=== PATIENT | male | born 1955 | race Two or more races ===

== ENCOUNTER 2018-04-15 13:17 | Inpatient (IN) | payer OTHER ==
[2018-04-15] MEDS ORDERED: LORazepam 2 MG/ML SDV VIAL IVPUSH ONE (14:39)
--- NOTE | 2018-04-15 14:44 | PDOC ---
History of Present Illness <Shazia Christianson - Last Filed: 04/15/18 18:27> - General History Source: Patient Exam Limitations: No Limitations - History of Present Illness Initial Comments: 04/15/18 14:40 62-year-old male history of heart disease hypertension alcohol abuse here today from [facility] for concerns of shortness of breath. Patient does have a history of COPD is on home oxygen was at [place] this morning and suddenly felt like he was shaky and feeling very short of breath therefore sent here for medical clearance prior to admission to [facility]. Patient states last includes this morning does drink daily. No history of DTs or previous withdrawal seizures no history of withdrawal hallucinations denies other drug use denies any chest pain patient is unsure of the names of his medications <Suzie Scanlon - Last Filed: 04/15/18 18:29> - General Chief Complaint: Alcohol intoxication Stated Complaint: ANXIETY Time Seen by Provider: 04/15/18 14:05 Past History <Shazia Christianson - Last Filed: 04/15/18 18:27> - Past Medical History Cardiac Disorders: Yes COPD: Yes HTN: Yes Hypercholesterolemia: Yes - Suicide/Smoking/Psychosocial Hx Smoking History: Former smoker Have you smoked in the past 12 months: No Information on smoking cessation initiated: No Hx Alcohol Use: Yes Drug/Substance Use Hx: No (past) Substance Use Type: Alcohol, Heroin <Suzie Scanlon - Last Filed: 04/15/18 18:29> - Past Medical History Allergies/Adverse Reactions: Allergies Allergy/AdvReac Type Severity Reaction Status Date / Time No Known Allergies Allergy Verified 04/15/18 14:49 Review of Systems - Review of Systems Constitutional: No: See HPI, Chills, Diaphoresis HEENTM: No: Cataracts Respiratory: Yes: Cough, Shortness of Breath Cardiac (ROS): No: Chest Pain, Edema ABD/GI: No: Abdominal Distended Musculoskeletal: No: Back Pain, Gout Integumentary: No: Bruising, Change in Color Hematologic/Lymphatic: No: Anemia All Other Systems: Reviewed and Negative <Suzie Scanlon - Last Filed: 04/15/18 18:29> *Physical Exam - Vital Signs Last Vital Signs Temp Pulse Resp BP Pulse Ox 98.6 F 101 H 22 166/84 100 04/15/18 13:44 04/15/18 13:44 04/15/18 13:44 04/15/18 13:44 04/15/18 13:44 <Shazia Christianson - Last Filed: 04/15/18 18:27> - Vital Signs Last Vital Signs Temp Pulse Resp BP Pulse Ox 98.6 F 101 H 22 166/84 100 04/15/18 13:44 04/15/18 13:44 04/15/18 13:44 04/15/18 13:44 04/15/18 13:44 - Physical Exam General Appearance: Yes: Appropriately Dressed HEENT: positive: Normal ENT Inspection Neck: positive: Trachea midline Respiratory/Chest: positive: Lungs Clear, Normal Breath Sounds Cardiovascular: positive: Regular Rhythm, S1, S2, Tachycardia Gastrointestinal/Abdominal: positive: Normal Bowel Sounds Musculoskeletal: positive: Normal Inspection Extremity: positive: Normal Capillary Refill Integumentary: positive: Normal Color, Warm, Clammy Neurologic: positive: Fully Oriented, Alert, Normal Mood/Affect, Other ( baseline tremulous) <Suzie Scanlon - Last Filed: 04/15/18 18:29> Heart Score/ECG Review #1 General ECG Interpretation: Sinus Rhythm, Normal Intervals, No acute ischemic changes (TwI V1 - V3) Compared to previous ECG there are: Previous ECG unavail - ECG Intrepretation Comment:: 04/15/18 15:04 sinus tachycardia. <Suzie Scanlon - Last Filed: 04/15/18 18:29> ED Treatment Course - LABORATORY CBC & Chemistry Diagram: 04/15/18 16:40 04/15/18 15:19 - ADDITIONAL ORDERS Additional order review: Laboratory Results 04/15/18 15:19 Sodium Cancelled Potassium Cancelled Chloride Cancelled Carbon Dioxide Cancelled Anion Gap Cancelled BUN Cancelled Creatinine Cancelled Creat Clearance w eGFR Cancelled Random Glucose Cancelled Calcium Cancelled Total Bilirubin Cancelled AST Cancelled ALT Cancelled Alkaline Phosphatase Cancelled Total Protein Cancelled Albumin Cancelled Acetaminophen Cancelled Alcohol, Quantitative Cancelled 04/15/18 04/15/18 16:40 15:19 RBC 3.71 L Cancelled MCV 96.8 H Cancelled MCHC 33.6 Cancelled RDW 15.7 Cancelled MPV 9.6 Cancelled Neutrophils % 87.8 H Cancelled Lymphocytes % 5.3 L Cancelled Monocytes % 6.5 Cancelled Eosinophils % 0.0 Cancelled Basophils % 0.4 Cancelled - RADIOLOGY Radiograph Interpretation: 04/15/18 17:46 EXAM: CXR INTERPRETED BY: Dr. Jennings REVIEWED BY: Dr. Scanlon IMPRESSION: Imaging reveals a weak inspiration with large heart, elevated right hemidiaphragm, sclerotic knob and congestive changes with questionable infiltrate or atelectasis with pleural reaction. There are no prior studies for comparison at this time. Correlation recommended. - Medications Given in the ED: ED Medications Discontinued Medications Generic Name Dose Route Start Last Admin Trade Name Freq PRN Reason Stop Dose Admin Lorazepam 2 mg 04/15/18 14:39 04/15/18 14:40 Ativan Injection - IVPUSH 04/15/18 14:40 2 mg ONCE ONE Administration <Shazia Christianson - Last Filed: 04/15/18 18:27> - LABORATORY CBC & Chemistry Diagram: 04/15/18 16:40 04/15/18 15:19 - RADIOLOGY Radiology Studies Ordered: Category Date Time Status CXRPORT [CHEST X-RAY PORTABLE*] [RAD] Stat Radiology 04/15/18 14:39 Ordered <Suzie Scanlon - Last Filed: 04/15/18 18:29> Medical Decision Making - Medical Decision Making 04/15/18 18:27 First call placed to Dr. Villar at 18:27. Case discussed at this time. <Shazia Christianson - Last Filed: 04/15/18 18:27> - Medical Decision Making 04/15/18 14:42 62 yo M h/o etoh abuse, copd, htn, here with c/o sob, and tremulousness from [facility]. pt was trying to quit drinking, but at [facility] felt sob so sent to ed for med eval. differential pneumonia, dehydration etoh withdrawal, acs, copd, plan labs cxr oxygen, aspirin, iv hydration kelly nye, 04/15/18 18:28 pt with pna on cxr, will admit for etoh withdrawal and pna. d/w dr. villar, will see in hospital. <Suzie Scanlon - Last Filed: 04/15/18 18:29> *DC/Admit/Observation/Transfer - Attestations Scribe Attestion: 04/15/18 17:46 Documentation prepared by Shazia Christianson, acting as medical office administrator for Suzie Scanlon MD. <Shazia Christianson - Last Filed: 04/15/18 18:27> - Discharge Dispostion Decision to Admit order: Yes <Suzie Scanlon - Last Filed: 04/15/18 18:29> Diagnosis at time of Disposition: Pneumonia, Alcohol withdrawal
[2018-04-15] MEDS ORDERED: LORazepam 2 MG/ML SDV VIAL ONE (14:53)
--- NOTE | 2018-04-15 16:03 | EKG ---
Test Reason : Blood Pressure : / mmHG Vent. Rate : 096 BPM Atrial Rate : 096 BPM P-R Int : 136 ms QRS Dur : 100 ms QT Int : 380 ms P-R-T Axes : 056 047 050 degrees QTc Int : 480 ms NORMAL SINUS RHYTHM T WAVE ABNORMALITY, CONSIDER ANTERIOR ISCHEMIA PROLONGED QT ABNORMAL ECG NO PREVIOUS ECGS AVAILABLE Confirmed by JOLENE TYLER MD ([id number]) on 04/15/2018 4:02:31 PM Referred By: Confirmed By:JOLENE TYLER MD
[2018-04-15 16:53] LABS: BASO % 0.4 % (0-2.0); HEMATOCRIT 35.9 % (35.4-49); LYMPH % 5.3 % (8-40); MCH 32.5 pg (25.7-33.7); MCHC 33.6 g/dl (32.0-35.9); MEAN CELL VOLUME 96.8 fl (80-96); MEAN PLT VOLUME 9.6 fl (7.5-11.1); MONO % 6.5 % (3.8-10.2); NEUT % 87.8 % (42.8-82.8); PLATELET COUNT 72 K/MM3 (134-434); RBC 3.71 M/mm3 (4.00-5.60); RDW 15.7 % (11.9-15.9)
[2018-04-15 17:47] LABS: PLATELET ESTIMATE DECREASED
[2018-04-15 19:04] LABS: ALBUMIN 3.4 g/dl (3.4-5.0); ALK PHOS 149 U/L (45-117); ANION GAP 15 (8-16); BILIRUBIN,TOTAL 1.1 mg/dL (0.2-1.0); BLOOD UREA NITROGEN 11 mg/dL (7-18); CALCIUM 8.1 mg/dL (8.5-10.1); CHLORIDE 95 mmol/L (98-107); CO2 28 mmol/L (21-32); CREATININE 0.8 mg/dL (0.7-1.3); GLUCOSE,RANDOM 65 mg/dL (74-106); POTASSIUM 3.7 mmol/L (3.5-5.1); SGOT/AST 113 U/L (15-37); SGPT/ALT 51 U/L (12-78); SODIUM 138 mmol/L (136-145); TOT PROT 6.3 g/dl (6.4-8.2)
[2018-04-15] MEDS ORDERED: ONDANSETRON 4 MG/2 ML VIAL IVPUSH ONE (19:58)
[2018-04-15] MEDS ORDERED: ONDANSETRON 4 MG/2 ML VIAL ONE (20:00)
[2018-04-15 20:11] LABS: URINE AMPHETAMINES NEGATIVE ng/ml (CUTOFF=500); URINE BARBITURATES NEGATIVE ng/ml (CUTOFF=200); URINE BENZODIAZEPINES NEGATIVE ng/ml (CUTOFF=200)
[2018-04-15 20:12] LABS: COCAINE, UR NEGATIVE ng/ml (CUTOFF=300); METHADONE, UR POSITIVE ng/ml (CUTOFF=300); OPIATES, URI NEGATIVE ng/ml (CUTOFF=300); PHENCYCLIDINE,URINE NEGATIVE ng/ml (CUTOFF=25)
[2018-04-15] MEDS ORDERED: ACETAMINOPHEN 325 MG TABLET (FP) PO PRN (21:27)
[2018-04-15] MEDS ORDERED: ALBUTEROL SO4 2.5/IPRATROPIUM 0.5 INH SOL 3 ML VIAL.NEB. NEB PRN (21:28)
--- NOTE | 2018-04-15 21:30 | HP ---
Admitting History and Physical - Primary Care Physician PCP: Maggie To - Admission Chief Complaint: sob History of Present Illness: 62-year-old male history of heart disease hypertension alcohol abuse here today from [facility] for concerns of shortness of breath. Patient does have a history of COPD is on home oxygen was at [facility] this morning and suddenly felt like he was shaky and feeling very short of breath therefore sent here for medical clearance prior to admission to [facility]. Patient states last includes this morning does drink daily. No history of DTs or previous withdrawal seizures no history of withdrawal hallucinations denies other drug use denies any chest pain patient is unsure of the names of his medications - Past Medical History Pulmonary: Yes: COPD - Smoking History Smoking history: Former smoker Have you smoked in the past 12 months: No - Alcohol/Substance Use Hx Alcohol Use: Yes Home Medications - Allergies Allergies/Adverse Reactions: Allergies Allergy/AdvReac Type Severity Reaction Status Date / Time No Known Allergies Allergy Verified 04/15/18 14:49 - Home Medications Home Medications: Ambulatory Orders Albuterol 0.083% Nebulizer Elizabeth [Ventolin 0.083% Nebulizer Soln -] 1 neb NEB Q6H PRN 04/16/18 Amlodipine Besylate 10 mg PO DAILY 04/16/18 Apixaban [Eliquis] 5 mg PO BID 04/16/18 Atorvastatin Ca [Lipitor] 20 mg PO HS 04/16/18 Cyanocobalamin [Vitamin B12 -] 1,000 mg PO DAILY 04/16/18 Folic Acid 1 mg PO DAILY 04/16/18 Ipratropium 0.02% Nebulizer [Atrovent] 1 neb NEB Q6H 04/16/18 Isosorbide Mononitrate 30 mg PO DAILY 04/16/18 Metoprolol Succinate [Toprol Xl] 50 mg PO DAILY 04/16/18 Tamsulosin HCl [Flomax] 0.4 mg PO DAILY@1000 04/16/18 Thiamine HCl [Vitamin B-1] 100 mg PO DAILY 04/16/18 Trazodone HCl 50 mg PO HS 04/16/18 Physical Examination Vital Signs: Vital Signs Temperature 98.6 F 04/15/18 13:44 Pulse Rate 114 H 04/15/18 19:52 Respiratory Rate 18 04/15/18 19:52 Blood Pressure 102/72 04/15/18 19:52 O2 Sat by Pulse Oximetry (%) 96 04/15/18 19:52 Constitutional: Yes: No Distress HENT: Yes: Atraumatic Neck: Yes: Supple Cardiovascular: Yes: Regular Rate and Rhythm Respiratory: Yes: Rhonchi, Wheezes Gastrointestinal: Yes: Normal Bowel Sounds Extremities: Yes: WNL Neurological: Yes: Alert, Oriented Labs: CBC, BMP 04/15/18 16:40 04/15/18 18:15 Imaging - Results Chest X-ray: Report Reviewed Problem List - Problems (1) COPD (chronic obstructive pulmonary disease) Assessment/Plan: duo nebs prn iv steroids Code(s): J44.9 - CHRONIC OBSTRUCTIVE PULMONARY DISEASE, UNSPECIFIED (2) Alcohol withdrawal Assessment/Plan: start librium detox consult Code(s): F10.239 - ALCOHOL DEPENDENCE WITH WITHDRAWAL, UNSPECIFIED Qualifiers: Complication of substance-induced condition: with unspecified complication Qualified Code(s): F10.239 - Alcohol dependence with withdrawal, unspecified (3) Pneumonia Assessment/Plan: iv abx id consult Code(s): J18.9 - PNEUMONIA, UNSPECIFIED ORGANISM Assessment/Plan Laboratory Tests 04/15/18 04/15/18 04/15/18 15:19 15:19 16:40 WBC Cancelled 7.0 Corrected WBC (auto) Cancelled RBC Cancelled 3.71 L Hgb Cancelled 12.0 Hct Cancelled 35.9 MCV Cancelled 96.8 H MCH Cancelled 32.5 MCHC Cancelled 33.6 RDW Cancelled 15.7 Plt Count Cancelled 72 L MPV Cancelled 9.6 Absolute Neuts (auto) Cancelled 6.1 Neutrophils % Cancelled 87.8 H Lymphocytes % Cancelled 5.3 L Monocytes % Cancelled 6.5 Eosinophils % Cancelled 0.0 Basophils % Cancelled 0.4 Nucleated RBC % Cancelled 0 Platelet Estimate Cancelled Decreased Platelet Comment Cancelled Slide scanned Sodium Cancelled Potassium Cancelled Chloride Cancelled Carbon Dioxide Cancelled Anion Gap Cancelled BUN Cancelled Creatinine Cancelled Creat Clearance w eGFR Cancelled Random Glucose Cancelled Calcium Cancelled Total Bilirubin Cancelled AST Cancelled ALT Cancelled Alkaline Phosphatase Cancelled Total Protein Cancelled Albumin Cancelled Opiates Screen Methadone Screen Acetaminophen Cancelled Barbiturate Screen Phencyclidine Screen Ur Amphetamines Screen MDMA (Ecstasy) Screen Benzodiazepines Screen Cocaine Screen U Marijuana (THC) Screen Alcohol, Quantitative Cancelled 04/15/18 04/15/18 18:15 19:40 WBC Corrected WBC (auto) RBC Hgb Hct MCV MCH MCHC RDW Plt Count MPV Absolute Neuts (auto) Neutrophils % Lymphocytes % Monocytes % Eosinophils % Basophils % Nucleated RBC % Platelet Estimate Platelet Comment Sodium 138 Potassium 3.7 Chloride 95 L Carbon Dioxide 28 Anion Gap 15 BUN 11 Creatinine 0.8 Creat Clearance w eGFR > 60 Random Glucose 65 L Calcium 8.1 L Total Bilirubin 1.1 H AST 113 H ALT 51 Alkaline Phosphatase 149 H Total Protein 6.3 L Albumin 3.4 Opiates Screen Negative Methadone Screen Positive Acetaminophen Barbiturate Screen Negative Phencyclidine Screen Negative Ur Amphetamines Screen Negative MDMA (Ecstasy) Screen Negative Benzodiazepines Screen Negative Cocaine Screen Negative U Marijuana (THC) Screen Negative Alcohol, Quantitative < 5.0 Active Medications Generic Name Dose Route Start Last Admin Trade Name Freq PRN Reason Stop Dose Admin Acetaminophen 650 mg 04/15/18 21:27 Tylenol - PO Q6H PRN FEVER Albuterol/Ipratropium 1 amp 04/15/18 21:28 Duoneb - NEB Q4H PRN SHORTNESS OF BREATH Methylprednisolone Sodium Succinate 60 mg 04/15/18 21:30 Solu-Medrol - IVPUSH Q8H-IV JENNIFER
[2018-04-15] MEDS ORDERED: LORazepam 2 MG/ML SDV VIAL IM PRN (21:31)
[2018-04-15] MEDS: methylPREDNISolone NA SUCC 125 MG/2 ML VIAL IVPUSH SCH (21:41)
[2018-04-15] MEDS ORDERED: methylPREDNISolone NA SUCC 1000 MG/8 ML VIAL ONE (21:46)
[2018-04-16] MEDS ORDERED: LORazepam 2 MG/ML SDV VIAL ONE (01:41)
[2018-04-16] MEDS: methylPREDNISolone NA SUCC 125 MG/2 ML VIAL IVPUSH SCH ×2 (01:45→09:28)
[2018-04-16] MEDS ORDERED: methylPREDNISolone NA SUCC 40 MG/1 ML VIAL ONE (02:07)
[2018-04-16 03:43] VITALS: BMI 26.1
[2018-04-16] MEDS ORDERED: chlordiazePOXIDE HCL 25 MG CAPSULE PO ONE (09:00)
--- NOTE | 2018-04-16 10:02 | CON.PULM ---
Consult Consult Specialty:: PULMONARY Referred by:: Dr. To Reason for Consultation:: shortness of breath - History of Present Illness Chief Complaint: shortness of breath History of Present Illness: 62yo male with h/o HTN, COPD, chronic hypoxic respiratory failure on home O2, alcohol abuse who was transferred from [facility] for shortness of breath. States he feels very anxious and shaky. No chest pain or palpitations. No fevers but with subjective chills. Occasional cough with clear sputum without wheezing. He is a former long time smoker, started at age 13, smoked on average 1 PPD until he quit last year. He is maintained on albuterol nebulizer treatments at home. - History Source History Provided By: Patient, Medical Record Limitations to Obtaining History: Clinical Condition - Past Medical History Pulmonary: Yes: COPD - Alcohol/Substance Use Hx Alcohol Use: Yes - Smoking History Smoking history: Former smoker Have you smoked in the past 12 months: No Home Medications - Allergies Allergies/Adverse Reactions: Allergies Allergy/AdvReac Type Severity Reaction Status Date / Time No Known Allergies Allergy Verified 04/15/18 14:49 - Home Medications Home Medications: Ambulatory Orders NK [No Known Home Medication] 04/15/18 Review of Systems - Review of Systems Constitutional: reports: Weakness. denies: Chills, Fever Eyes: denies: Recent Change in Vision HENT: denies: Nasal Congestion, Throat Pain Neck: denies: Stiffness, Tenderness Cardiovascular: reports: Shortness of Breath. denies: Chest Pain, Edema, Palpitations Respiratory: reports: Cough. denies: Hemoptysis, Wheezing Gastrointestinal: denies: Abdominal Pain, Nausea, Vomiting Genitourinary: denies: Dysuria Neurological: denies: Dizziness, Headache Physical Exam Vital Sings: Vital Signs Temperature 97.6 F 04/16/18 02:56 Pulse Rate 92 H 04/16/18 02:56 Respiratory Rate 20 04/16/18 02:56 Blood Pressure 151/86 04/16/18 02:56 O2 Sat by Pulse Oximetry (%) 96 04/16/18 02:56 Constitutional: Yes: Anxious Eyes: Yes: Conjunctiva Clear, EOM Intact HENT: Yes: Atraumatic, Normocephalic Neck: Yes: Supple, Trachea Midline Cardiovascular: Yes: Regular Rate and Rhythm Respiratory: Yes: Regular, Diminished (decreased breath sounds at the bases) ...Clubbing: No Gastrointestinal: Yes: Normal Bowel Sounds, Soft. No: Tenderness Edema: No Neurological: Yes: Alert, Oriented Labs: CBC, BMP 04/15/18 16:40 04/15/18 18:15 Imaging - Results Chest X-ray: Report Reviewed, Image Reviewed (poor inspiratory effor, pulmonary vascular congestion, cardiomegaly) Problem List - Problems (1) Alcohol withdrawal Code(s): F10.239 - ALCOHOL DEPENDENCE WITH WITHDRAWAL, UNSPECIFIED (2) COPD (chronic obstructive pulmonary disease) Code(s): J44.9 - CHRONIC OBSTRUCTIVE PULMONARY DISEASE, UNSPECIFIED Assessment/Plan Shortness of Breath Chronic Hypoxic Respiratory Failure r/o CHF COPD - less likely acute exacerbation Alcohol Abuse HTN Former Long time Smoker - will give dose of lasix - echocardiogram - rapid taper off steroids - inhaled bronchodilators standing and PRN - O2 to keep SpO2 >90% - CT chest noncontrast given his smoking history and abnormal CXR - monitor for withdrawal, would give dose of librium as he appears tremulous - addiction medicine eval - DVT prophylaxis Thank you for this consult Guanako Dale MD
[2018-04-16] MEDS ORDERED: ALBUTEROL SO4 0.083% IH SOL 2.5 MG/3 ML VIAL.NEB. NEB PRN ×2 (10:12→18:39)
[2018-04-16] MEDS ORDERED: FUROSEMIDE 40 MG/4 ML INJECTABLE VIAL IVPUSH ONE (10:45)
[2018-04-16] MEDS ORDERED: chlordiazePOXIDE HCL 25 MG CAPSULE PO PRN (10:54)
[2018-04-16] MEDS: ALBUTEROL SO4 2.5/IPRATROPIUM 0.5 INH SOL 3 ML VIAL.NEB. NEB SCH ×3 (11:08→20:50)
--- NOTE | 2018-04-16 11:08 | PN ---
[facility] CIWA - CIWA Score Muscle Tremors: 4-Moderate,w/Arms Extend Anxiety: 1-Mildly Anxious Agitation: 0-Normal Activity Paroxysmal Sweats: No Perspiration Orientation: 0-Oriented Tacttile Disturbances: 0-None Auditory Disturbances: 0-None Visual Disturbances: 0-None Headache: 0-None Present (pt is in mild alcohol withdrawal)
--- NOTE | 2018-04-16 11:09 | PN ---
S Progress Note (SOAP) Subjective: Asked to see pt who was transferred here from [facility] for alcohol withdrawal f /u. Pt states started drinking after 9-11 incident at [employer] when many of his coworkers . Pt states he has been drinking to forget the pain. Has been driking heavily recently. Wanted to go into detox.at [facility]. PT states they did not have any beds and so brought to [facility] for dttox. On evaluation it was felt that the pt was having shortness of breath and so transferred to [facility] for further evaluaton. Pt is being treated here for pulmonary process. Pt states that he feels like he is in withdrawal. Denies h/o seizures or DT's. Objective: 04/16/18 18:14 04/15/18 16:40 04/15/18 18:15 Vital Signs - 24 hr 04/15/18 04/15/18 04/16/18 19:52 21:00 01:33 Temperature Pulse Rate Pulse Rate [ 114 H 80 Apical] Respiratory 18 20 Rate Blood Pressure Blood Pressure 102/72 159/116 [Right Arm] O2 Sat by Pulse 96 96 100 Oximetry (%) 04/16/18 04/16/18 04/16/18 02:56 09:00 17:04 Temperature 97.6 F 97.5 F L Pulse Rate 92 H 106 H Pulse Rate [ Apical] Respiratory 20 20 20 Rate Blood Pressure 151/86 158/91 Blood Pressure [Right Arm] O2 Sat by Pulse 96 97 Oximetry (%) pt was tremulous and states feeling anxious. alert and oriented and without hallucinations Assessment: 04/16/18 18:15 62 yo old with a long h/o alcohol use, requesting detox and rehab admission Plan: 1. Alcohol librium- withdrawal protocol placed. When pt is ready and if willing he can be transferred to [facility] for detox and rehab. please call me if with questions of if I can be of further assistance: .
[2018-04-16] MEDS: chlordiazePOXIDE HCL 25 MG CAPSULE PO SCH ×2 (12:11→18:00)
--- NOTE | 2018-04-16 12:42 | CON.ID ---
Consult Consult Specialty:: infectious diseases Reason for Consultation:: pneumonia/infiltrate in the lung - History of Present Illness Chief Complaint: weakness,shortness of breath History of Present Illness: 62-year-old male history of heart disease hypertension alcohol abuse was send from the [facility] detox center because patient was c/o of sob patient has a history of copd and is on home oxygen According to the patient he at least drinks 2 points of etoh daily and gets anxiousness attacks and currently he is feeling anxious and says he does not feel too well . No history of DTs or previous withdrawal seizures no history of withdrawal hallucinations denies other drug use denies any chest pain patient admitted and seen by [facility] attending - History Source History Provided By: Patient, Medical Record Limitations to Obtaining History: Poor Historian - Past Medical History Pulmonary: Yes: COPD - Alcohol/Substance Use Hx Alcohol Use: Yes - Smoking History Smoking history: Former smoker Have you smoked in the past 12 months: No Home Medications - Allergies Allergies/Adverse Reactions: Allergies Allergy/AdvReac Type Severity Reaction Status Date / Time No Known Allergies Allergy Verified 04/15/18 14:49 - Home Medications Home Medications: Ambulatory Orders NK [No Known Home Medication] 04/15/18 Review of Systems - Review of Systems Constitutional: reports: No Symptoms Eyes: reports: No Symptoms HENT: reports: No Symptoms Neck: reports: No Symptoms Cardiovascular: reports: No Symptoms Respiratory: reports: SOB Gastrointestinal: reports: No Symptoms Genitourinary: reports: No Symptoms Musculoskeletal: reports: No Symptoms Integumentary: reports: No Symptoms Neurological: reports: No Symptoms Endocrine: reports: No Symptoms Hematology/Lymphatic: reports: No Symptoms Psychiatric: reports: No Symptoms Physical Exam Vital Signs: Vital Signs Temperature 97.6 F 04/16/18 02:56 Pulse Rate 92 H 04/16/18 02:56 Respiratory Rate 20 04/16/18 02:56 Blood Pressure 151/86 04/16/18 02:56 O2 Sat by Pulse Oximetry (%) 96 04/16/18 02:56 Constitutional: Yes: Anxious, Mild Distress Eyes: Yes: Conjunctiva Clear HENT: Yes: Atraumatic, Normocephalic Cardiovascular: Yes: Regular Rate and Rhythm Respiratory: Yes: Regular, Poor Air Entry Gastrointestinal: Yes: Normal Bowel Sounds, Soft Musculoskeletal: Yes: WNL Extremities: Yes: WNL Neurological: Yes: Alert, Oriented Psychiatric: Yes: Alert, Oriented Labs: CBC, BMP 04/15/18 16:40 04/15/18 18:15 Imaging - Results Chest X-ray: Report Reviewed, Image Reviewed Assessment/Plan patient who is coming with sob and who is etoh abuser and with copd and anxiousness showing a possible infiltrate on chest xray and on nasal canula the chances are with his history he might have aspirated but currently the patient is clinically stable infiltrate in the lung sob etoh abuse anxiousness plan await for cx report will start patient on oral abx monitor for breathing if things change will switch to iv if patient improves then will deescalate the abx
[2018-04-16] MEDS: METHADONE HCL 10 MG TABLET PO SCH (13:30)
[2018-04-16] MEDS ORDERED: AMOX TR/POT CLAV 875MG/125MG TABLETS (FP) PO ONE (13:30)
--- NOTE | 2018-04-16 18:44 | PN ---
Progress Note, Physician - Current Medication List Current Medications: Active Medications Acetaminophen (Tylenol -) 650 mg PO Q6H PRN PRN Reason: FEVER Albuterol Sulfate (Ventolin 0.083% Nebulizer Soln -) 1 amp NEB Q6H PRN PRN Reason: WHEEZING Albuterol/Ipratropium (Duoneb -) 1 amp NEB RQID [facility] Last Admin: 04/16/18 15:34 Dose: 1 amp Amlodipine Besylate (Norvasc -) 10 mg PO DAILY [facility] Amoxicillin/Clavulanate Potassium (Augmentin - 875mg Tablet) 1 tab PO BID@0800, 1730 [facility] Apixaban (Eliquis -) 5 mg PO BID [facility] Atorvastatin Calcium (Lipitor -) 20 mg PO HS [facility] Chlordiazepoxide HCl (Librium -) 25 mg PO Q4H PRN PRN Reason: WITHDRAWAL(CONT SUBST) Stop: 04/20/18 23:59 Chlordiazepoxide HCl (Librium -) 50 mg PO Q6HPO [facility] Stop: 04/17/18 06:01 Last Admin: 04/16/18 18:00 Dose: 50 mg Chlordiazepoxide HCl (Librium -) 25 mg PO Q6HPO [facility] Stop: 04/18/18 06:01 Chlordiazepoxide HCl (Librium -) 15 mg PO Q6HPO [facility] Stop: 04/19/18 06:01 Folic Acid (Folic Acid -) 1 mg PO DAILY [facility] Isosorbide Mononitrate (Ismo -) 30 mg PO DAILY [facility] Lorazepam (Ativan Injection -) 1 mg IM Q6H PRN PRN Reason: AGITATION Last Admin: 04/16/18 01:44 Dose: 1 mg Methadone HCl (Dolophine -) 30 mg PO DAILY@0600 [facility] Last Admin: 04/16/18 13:30 Dose: 30 mg Methylprednisolone Sodium Succinate (Solu-Medrol -) 40 mg IVPUSH Q12H [facility] Metoprolol Succinate (Toprol Xl -) 50 mg PO DAILY [facility] Tamsulosin HCl (Flomax -) 0.4 mg PO DAILY@1000 [facility] Thiamine HCl (Vitamin B1 -) 100 mg PO DAILY [facility] Trazodone HCl (Desyrel -) 50 mg PO HS [facility] - Objective Vital Signs: Vital Signs Temperature 97.5 F L 04/16/18 17:04 Pulse Rate 106 H 04/16/18 17:04 Respiratory Rate 20 04/16/18 17:04 Blood Pressure 158/91 04/16/18 17:04 O2 Sat by Pulse Oximetry (%) 97 04/16/18 09:00 Constitutional: Yes: Calm HENT: Yes: Atraumatic Neck: Yes: Supple Cardiovascular: Yes: Regular Rate and Rhythm Respiratory: Yes: CTA Bilaterally Extremities: Yes: WNL Neurological: Yes: Alert, Oriented Labs: CBC, BMP 04/15/18 16:40 04/15/18 18:15 Problem List - Problems (1) COPD (chronic obstructive pulmonary disease) Assessment/Plan: duo nebs prn iv steroids Code(s): J44.9 - CHRONIC OBSTRUCTIVE PULMONARY DISEASE, UNSPECIFIED (2) Alcohol withdrawal Assessment/Plan: on librium protocol detox consult Code(s): F10.239 - ALCOHOL DEPENDENCE WITH WITHDRAWAL, UNSPECIFIED Qualifiers: Complication of substance-induced condition: with unspecified complication Qualified Code(s): F10.239 - Alcohol dependence with withdrawal, unspecified (3) Pneumonia Assessment/Plan: po abx id consult Code(s): J18.9 - PNEUMONIA, UNSPECIFIED ORGANISM
[2018-04-16] MEDS ORDERED: ISOSORBIDE MONONITRATE 20 MG TABLET PO SCH (18:45)
[2018-04-16] MEDS ORDERED: AMOX TR/POT CLAV 875MG/125MG TABLETS (FP) PO SCH (20:00)
[2018-04-16] MEDS: FOLIC ACID 1 MG TABLET (FP) PO SCH (20:04)
[2018-04-16] MEDS: amLODIPine BESYLATE 10 MG TABLET (FP) PO SCH (20:04)
[2018-04-16] MEDS: THIAMINE HCL 100 MG TABLET (FP) PO SCH (20:04)
[2018-04-16] MEDS: AMOX TR/POT CLAV 875MG/125MG TABLETS (FP) PO SCH (22:16)
[2018-04-16] MEDS: ATORVASTATIN CA 20 MG TABLET (FP) PO SCH (22:16)
[2018-04-16] MEDS: methylPREDNISolone NA SUCC 40 MG/1 ML VIAL IVPUSH SCH (22:17)
[2018-04-16] MEDS: traZODone HCL 50 MG TABLET (FP) PO SCH (22:17)
[2018-04-16] MEDS: APIXABAN 5 MG TABLET PO SCH (22:17)
[2018-04-17] MEDS: chlordiazePOXIDE HCL 25 MG CAPSULE PO SCH ×4 (00:24→17:58)
[2018-04-17] MEDS: METHADONE HCL 10 MG TABLET PO SCH (05:30)
[2018-04-17] MEDS ORDERED: PT OWN MED DRAWER 7, Y5N ONE ×2 (06:31→19:36)
[2018-04-17] MEDS: ALBUTEROL SO4 2.5/IPRATROPIUM 0.5 INH SOL 3 ML VIAL.NEB. NEB SCH ×4 (07:33→20:36)
[2018-04-17] MEDS: AMOX TR/POT CLAV 875MG/125MG TABLETS (FP) PO SCH ×2 (08:30→17:58)
[2018-04-17] MEDS: TAMSULOSIN HCL 0.4 MG CAP.ER.24H (FP) PO SCH (08:30)
[2018-04-17] MEDS: THIAMINE HCL 100 MG TABLET (FP) PO SCH (09:34)
[2018-04-17] MEDS: APIXABAN 5 MG TABLET PO SCH ×2 (09:34→21:16)
[2018-04-17] MEDS: amLODIPine BESYLATE 10 MG TABLET (FP) PO SCH (09:34)
[2018-04-17] MEDS: methylPREDNISolone NA SUCC 40 MG/1 ML VIAL IVPUSH SCH (09:35)
[2018-04-17] MEDS: FOLIC ACID 1 MG TABLET (FP) PO SCH (09:35)
[2018-04-17] MEDS: ISOSORBIDE MONONITRATE 30 MG TAB.SR.24H (FP) PO SCH (09:35)
--- NOTE | 2018-04-17 12:55 | PN ---
Progress Note, Physician History of Present Illness: feeling much better no complaints sill feeling anxious - Current Medication List Current Medications: Active Medications Acetaminophen (Tylenol -) 650 mg PO Q6H PRN PRN Reason: FEVER Albuterol Sulfate (Ventolin 0.083% Nebulizer Soln -) 1 amp NEB Q6H PRN PRN Reason: WHEEZING Albuterol/Ipratropium (Duoneb -) 1 amp NEB RQID [facility] Last Admin: 04/17/18 11:43 Dose: 1 amp Amlodipine Besylate (Norvasc -) 10 mg PO DAILY [facility] Last Admin: 04/17/18 09:34 Dose: 10 mg Amoxicillin/Clavulanate Potassium (Augmentin - 875mg Tablet) 1 tab PO BID@0800, 1730 [facility] Last Admin: 04/17/18 08:30 Dose: 1 tab Apixaban (Eliquis -) 5 mg PO BID [facility] Last Admin: 04/17/18 09:34 Dose: 5 mg Atorvastatin Calcium (Lipitor -) 20 mg PO HS [facility] Last Admin: 04/16/18 22:16 Dose: 20 mg Chlordiazepoxide HCl (Librium -) 25 mg PO Q4H PRN PRN Reason: WITHDRAWAL(CONT SUBST) Stop: 04/20/18 23:59 Chlordiazepoxide HCl (Librium -) 25 mg PO Q6HPO [facility] Stop: 04/18/18 06:01 Last Admin: 04/17/18 11:05 Dose: 25 mg Chlordiazepoxide HCl (Librium -) 15 mg PO Q6HPO [facility] Stop: 04/19/18 06:01 Folic Acid (Folic Acid -) 1 mg PO DAILY [facility] Last Admin: 04/17/18 09:35 Dose: 1 mg Isosorbide Mononitrate (Imdur -) 30 mg PO DAILY [facility] Last Admin: 04/17/18 09:35 Dose: 30 mg Lorazepam (Ativan Injection -) 1 mg IM Q6H PRN PRN Reason: AGITATION Last Admin: 04/16/18 01:44 Dose: 1 mg Methadone HCl (Dolophine -) 30 mg PO DAILY@0600 [facility] Last Admin: 04/17/18 05:30 Dose: 30 mg Methylprednisolone Sodium Succinate (Solu-Medrol -) 40 mg IVPUSH Q12H [facility] Last Admin: 04/17/18 09:35 Dose: 40 mg Metoprolol Succinate (Toprol Xl -) 50 mg PO DAILY [facility] Last Admin: 04/17/18 09:34 Dose: 50 mg Tamsulosin HCl (Flomax -) 0.4 mg PO 0830 [facility] Last Admin: 04/17/18 08:30 Dose: 0.4 mg Thiamine HCl (Vitamin B1 -) 100 mg PO DAILY [facility] Last Admin: 04/17/18 09:34 Dose: 100 mg Trazodone HCl (Desyrel -) 50 mg PO [facility] Last Admin: 04/16/18 22:17 Dose: 50 mg - Objective Vital Signs: Vital Signs Temperature 98.8 F 04/17/18 09:34 Pulse Rate 84 04/17/18 09:34 Respiratory Rate 20 04/17/18 09:34 Blood Pressure 128/77 04/17/18 09:34 O2 Sat by Pulse Oximetry (%) 97 04/17/18 09:00 Constitutional: Yes: Anxious, Mild Distress Cardiovascular: Yes: Regular Rate and Rhythm Respiratory: Yes: Regular, CTA Bilaterally Gastrointestinal: Yes: Normal Bowel Sounds, Soft Musculoskeletal: Yes: WNL Extremities: Yes: WNL Neurological: Yes: Alert, Oriented Psychiatric: Yes: Alert, Oriented Labs: CBC, BMP 04/15/18 16:40 04/15/18 18:15 Assessment/Plan infiltrate in the lung sob etoh abuse anxiousness plan cx reports noted continue current mgmt incentive scottie rest as per primary
--- NOTE | 2018-04-17 14:08 | PN ---
Progress Note, Physician - Current Medication List Current Medications: Active Medications Acetaminophen (Tylenol -) 650 mg PO Q6H PRN PRN Reason: FEVER Albuterol Sulfate (Ventolin 0.083% Nebulizer Soln -) 1 amp NEB Q6H PRN PRN Reason: WHEEZING Albuterol/Ipratropium (Duoneb -) 1 amp NEB RQID [facility] Last Admin: 04/17/18 11:43 Dose: 1 amp Amlodipine Besylate (Norvasc -) 10 mg PO DAILY [facility] Last Admin: 04/17/18 09:34 Dose: 10 mg Amoxicillin/Clavulanate Potassium (Augmentin - 875mg Tablet) 1 tab PO BID@0800, 1730 [facility] Last Admin: 04/17/18 08:30 Dose: 1 tab Apixaban (Eliquis -) 5 mg PO BID [facility] Last Admin: 04/17/18 09:34 Dose: 5 mg Atorvastatin Calcium (Lipitor -) 20 mg PO HS [facility] Last Admin: 04/16/18 22:16 Dose: 20 mg Chlordiazepoxide HCl (Librium -) 25 mg PO Q4H PRN PRN Reason: WITHDRAWAL(CONT SUBST) Stop: 04/20/18 23:59 Chlordiazepoxide HCl (Librium -) 25 mg PO Q6HPO [facility] Stop: 04/18/18 06:01 Last Admin: 04/17/18 11:05 Dose: 25 mg Chlordiazepoxide HCl (Librium -) 15 mg PO Q6HPO [facility] Stop: 04/19/18 06:01 Folic Acid (Folic Acid -) 1 mg PO DAILY [facility] Last Admin: 04/17/18 09:35 Dose: 1 mg Isosorbide Mononitrate (Imdur -) 30 mg PO DAILY [facility] Last Admin: 04/17/18 09:35 Dose: 30 mg Lorazepam (Ativan Injection -) 1 mg IM Q6H PRN PRN Reason: AGITATION Last Admin: 04/16/18 01:44 Dose: 1 mg Methadone HCl (Dolophine -) 30 mg PO DAILY@0600 [facility] Last Admin: 04/17/18 05:30 Dose: 30 mg Methylprednisolone Sodium Succinate (Solu-Medrol -) 40 mg IVPUSH Q12H [facility] Last Admin: 04/17/18 09:35 Dose: 40 mg Metoprolol Succinate (Toprol Xl -) 50 mg PO DAILY [facility] Last Admin: 04/17/18 09:34 Dose: 50 mg Tamsulosin HCl (Flomax -) 0.4 mg PO 0830 [facility] Last Admin: 04/17/18 08:30 Dose: 0.4 mg Thiamine HCl (Vitamin B1 -) 100 mg PO DAILY [facility] Last Admin: 04/17/18 09:34 Dose: 100 mg Trazodone HCl (Desyrel -) 50 mg PO HS [facility] Last Admin: 04/16/18 22:17 Dose: 50 mg - Objective Vital Signs: Vital Signs Temperature 98.8 F 04/17/18 09:34 Pulse Rate 84 04/17/18 09:34 Respiratory Rate 20 04/17/18 09:34 Blood Pressure 128/77 04/17/18 09:34 O2 Sat by Pulse Oximetry (%) 97 04/17/18 09:00 Constitutional: Yes: No Distress HENT: Yes: Atraumatic Cardiovascular: Yes: Regular Rate and Rhythm Respiratory: Yes: Rhonchi Gastrointestinal: Yes: Normal Bowel Sounds Extremities: Yes: WNL Neurological: Yes: Alert, Oriented Labs: CBC, BMP 04/15/18 16:40 04/15/18 18:15 Problem List - Problems (1) COPD (chronic obstructive pulmonary disease) Assessment/Plan: duo nebs prn iv steroids Code(s): J44.9 - CHRONIC OBSTRUCTIVE PULMONARY DISEASE, UNSPECIFIED (2) Alcohol withdrawal Assessment/Plan: on librium protocol detox consult Code(s): F10.239 - ALCOHOL DEPENDENCE WITH WITHDRAWAL, UNSPECIFIED Qualifiers: Complication of substance-induced condition: with unspecified complication Qualified Code(s): F10.239 - Alcohol dependence with withdrawal, unspecified (3) Pneumonia Assessment/Plan: po abx id consult Code(s): J18.9 - PNEUMONIA, UNSPECIFIED ORGANISM
[2018-04-17] MEDS: predniSONE 20 MG TABLET (UD) PO SCH (15:06)
--- NOTE | 2018-04-17 15:44 | PN ---
Progress Note, Physician History of Present Illness: PULMONARY ALERT,FEELING BETTER, COMFORTABLE ON NASAL O2 - Current Medication List Current Medications: Active Medications Acetaminophen (Tylenol -) 650 mg PO Q6H PRN PRN Reason: FEVER Albuterol Sulfate (Ventolin 0.083% Nebulizer Soln -) 1 amp NEB Q6H PRN PRN Reason: WHEEZING Albuterol/Ipratropium (Duoneb -) 1 amp NEB RQID [facility] Last Admin: 04/17/18 11:43 Dose: 1 amp Amlodipine Besylate (Norvasc -) 10 mg PO DAILY [facility] Last Admin: 04/17/18 09:34 Dose: 10 mg Amoxicillin/Clavulanate Potassium (Augmentin - 875mg Tablet) 1 tab PO BID@0800, 1730 [facility] Last Admin: 04/17/18 08:30 Dose: 1 tab Apixaban (Eliquis -) 5 mg PO BID [facility] Last Admin: 04/17/18 09:34 Dose: 5 mg Atorvastatin Calcium (Lipitor -) 20 mg PO HS [facility] Last Admin: 04/16/18 22:16 Dose: 20 mg Chlordiazepoxide HCl (Librium -) 25 mg PO Q4H PRN PRN Reason: WITHDRAWAL(CONT SUBST) Stop: 04/20/18 23:59 Chlordiazepoxide HCl (Librium -) 25 mg PO Q6HPO [facility] Stop: 04/18/18 06:01 Last Admin: 04/17/18 11:05 Dose: 25 mg Chlordiazepoxide HCl (Librium -) 15 mg PO Q6HPO [facility] Stop: 04/19/18 06:01 Folic Acid (Folic Acid -) 1 mg PO DAILY [facility] Last Admin: 04/17/18 09:35 Dose: 1 mg Isosorbide Mononitrate (Imdur -) 30 mg PO DAILY [facility] Last Admin: 04/17/18 09:35 Dose: 30 mg Lorazepam (Ativan Injection -) 1 mg IM Q6H PRN PRN Reason: AGITATION Last Admin: 04/16/18 01:44 Dose: 1 mg Methadone HCl (Dolophine -) 30 mg PO DAILY@0600 [facility] Last Admin: 04/17/18 05:30 Dose: 30 mg Metoprolol Succinate (Toprol Xl -) 50 mg PO DAILY [facility] Last Admin: 04/17/18 09:34 Dose: 50 mg Prednisone (Deltasone -) 40 mg PO DAILY [facility] Last Admin: 04/17/18 15:06 Dose: Not Given Tamsulosin HCl (Flomax -) 0.4 mg PO 0830 [facility] Last Admin: 04/17/18 08:30 Dose: 0.4 mg Thiamine HCl (Vitamin B1 -) 100 mg PO DAILY [facility] Last Admin: 04/17/18 09:34 Dose: 100 mg Trazodone HCl (Desyrel -) 50 mg PO [facility] Last Admin: 04/16/18 22:17 Dose: 50 mg - Objective Vital Signs: Vital Signs Temperature 98.8 F 04/17/18 09:34 Pulse Rate 84 04/17/18 09:34 Respiratory Rate 20 04/17/18 09:34 Blood Pressure 128/77 04/17/18 09:34 O2 Sat by Pulse Oximetry (%) 97 04/17/18 09:00 Constitutional: Yes: Well Nourished, Calm Eyes: Yes: WNL HENT: Yes: WNL Neck: Yes: WNL Cardiovascular: Yes: Regular Rate and Rhythm, S1, S2 Respiratory: Yes: Wheezes (FEW SCATTERED WHEEZES) Gastrointestinal: Yes: Normal Bowel Sounds, Soft Extremities: Yes: WNL Edema: No Labs: CBC, BMP 04/15/18 16:40 04/15/18 18:15 - ....Imaging Cat Scan: Report Reviewed, Image Reviewed Assessment/Plan Problem List - Problems (1) Alcohol withdrawal Code(s): F10.239 - ALCOHOL DEPENDENCE WITH WITHDRAWAL, UNSPECIFIED (2) COPD (chronic obstructive pulmonary disease) Code(s): J44.9 - CHRONIC OBSTRUCTIVE PULMONARY DISEASE, UNSPECIFIED Assessment/Plan Shortness of Breath Chronic Hypoxic Respiratory Failure r/o CHF COPD - less likely acute exacerbation Alcohol Abuse HTN Former Long time Smoker Pleural thickening and calcifications - inhaled bronchodilators standing and PRN - O2 to keep SpO2 >90% - monitor for withdrawal, would give dose of librium as he appears tremulous - DVT prophylaxis DR RUIZ
[2018-04-17] MEDS: traZODone HCL 50 MG TABLET (FP) PO SCH (21:16)
[2018-04-17] MEDS: ATORVASTATIN CA 20 MG TABLET (FP) PO SCH (21:16)
[2018-04-18] MEDS: chlordiazePOXIDE HCL 25 MG CAPSULE PO SCH ×2 (00:46→05:15)
[2018-04-18] MEDS ORDERED: PT OWN MED DRAWER 7, Y5N ONE ×2 (01:47→10:56)
[2018-04-18] MEDS: METHADONE HCL 10 MG TABLET PO SCH (05:15)
[2018-04-18] MEDS: ALBUTEROL SO4 2.5/IPRATROPIUM 0.5 INH SOL 3 ML VIAL.NEB. NEB SCH ×4 (07:41→20:50)
[2018-04-18] MEDS: AMOX TR/POT CLAV 875MG/125MG TABLETS (FP) PO SCH ×2 (08:52→17:18)
[2018-04-18] MEDS: TAMSULOSIN HCL 0.4 MG CAP.ER.24H (FP) PO SCH (08:52)
[2018-04-18] MEDS: FOLIC ACID 1 MG TABLET (FP) PO SCH (10:57)
[2018-04-18] MEDS: amLODIPine BESYLATE 10 MG TABLET (FP) PO SCH (10:57)
[2018-04-18] MEDS: ISOSORBIDE MONONITRATE 30 MG TAB.SR.24H (FP) PO SCH (10:57)
[2018-04-18] MEDS: predniSONE 20 MG TABLET (UD) PO SCH (10:57)
[2018-04-18] MEDS: APIXABAN 5 MG TABLET PO SCH ×2 (10:57→21:27)
[2018-04-18] MEDS: THIAMINE HCL 100 MG TABLET (FP) PO SCH (10:57)
[2018-04-18] MEDS: chlordiazePOXIDE 5 MG CAPSULE PO SCH ×2 (11:04→17:18)
--- NOTE | 2018-04-18 12:26 | PN ---
Progress Note (short form) - Note Progress Note: PULMONARY Denies shortness of breath or chest pain. Still feels shaky. Vital Signs Period Temp Pulse Resp BP Sys/Mcgill Pulse Ox Last 24 Hr 98.1 F-98.7 F 77-97 18-20 116-138/72-76 97 Gen: tremulous Heart: RRR Lung: decreased breath sounds at the bases Abd: soft, nontender Ext: no edema CBC, BMP 04/15/18 16:40 04/15/18 18:15 Active Medications Acetaminophen (Tylenol -) 650 mg PO Q6H PRN PRN Reason: FEVER Albuterol Sulfate (Ventolin 0.083% Nebulizer Soln -) 1 amp NEB Q6H PRN PRN Reason: WHEEZING Albuterol/Ipratropium (Duoneb -) 1 amp NEB RQID [facility] Last Admin: 04/18/18 07:41 Dose: 1 amp Amlodipine Besylate (Norvasc -) 10 mg PO DAILY [facility] Last Admin: 04/18/18 10:57 Dose: 10 mg Amoxicillin/Clavulanate Potassium (Augmentin - 875mg Tablet) 1 tab PO BID@0800, 1730 [facility] Last Admin: 04/18/18 08:52 Dose: 1 tab Apixaban (Eliquis -) 5 mg PO BID [facility] Last Admin: 04/18/18 10:57 Dose: 5 mg Atorvastatin Calcium (Lipitor -) 20 mg PO HS [facility] Last Admin: 04/17/18 21:16 Dose: 20 mg Chlordiazepoxide HCl (Librium -) 25 mg PO Q4H PRN PRN Reason: WITHDRAWAL(CONT SUBST) Stop: 04/20/18 23:59 Chlordiazepoxide HCl (Librium -) 15 mg PO Q6HPO [facility] Stop: 04/19/18 06:01 Last Admin: 04/18/18 11:04 Dose: 15 mg Folic Acid (Folic Acid -) 1 mg PO DAILY [facility] Last Admin: 04/18/18 10:57 Dose: 1 mg Isosorbide Mononitrate (Imdur -) 30 mg PO DAILY [facility] Last Admin: 04/18/18 10:57 Dose: 30 mg Lorazepam (Ativan Injection -) 1 mg IM Q6H PRN PRN Reason: AGITATION Last Admin: 04/16/18 01:44 Dose: 1 mg Methadone HCl (Dolophine -) 30 mg PO DAILY@0600 [facility] Last Admin: 04/18/18 05:15 Dose: 30 mg Metoprolol Succinate (Toprol Xl -) 50 mg PO DAILY [facility] Last Admin: 04/18/18 10:57 Dose: 50 mg Prednisone (Deltasone -) 40 mg PO DAILY [facility] Last Admin: 04/18/18 10:57 Dose: 40 mg Tamsulosin HCl (Flomax -) 0.4 mg PO 0830 [facility] Last Admin: 04/18/18 08:52 Dose: 0.4 mg Thiamine HCl (Vitamin B1 -) 100 mg PO DAILY [facility] Last Admin: 04/18/18 10:57 Dose: 100 mg Trazodone HCl (Desyrel -) 50 mg PO HS [facility] Last Admin: 04/17/18 21:16 Dose: 50 mg A/P Shortness of Breath Chronic Hypoxic Respiratory Failure r/o CHF COPD - less likely acute exacerbation Alcohol Abuse HTN Former Long time Smoker - rapid taper off steroids - inhaled bronchodilators standing and PRN - O2 to keep SpO2 >90% - alcohol detox - DVT prophylaxis Problem List - Problems (1) Alcohol withdrawal Code(s): F10.239 - ALCOHOL DEPENDENCE WITH WITHDRAWAL, UNSPECIFIED Qualifiers: Complication of substance-induced condition: with unspecified complication Qualified Code(s): F10.239 - Alcohol dependence with withdrawal, unspecified (2) COPD (chronic obstructive pulmonary disease) Code(s): J44.9 - CHRONIC OBSTRUCTIVE PULMONARY DISEASE, UNSPECIFIED
[2018-04-18] MEDS ORDERED: predniSONE 20 MG TABLET (UD) PO SCH (12:27)
--- NOTE | 2018-04-18 13:29 | PN ---
Progress Note, Physician History of Present Illness: Pt seen and examined. Events noted. States he feels a bit anxious but afebrile, without respiratory distress. - Current Medication List Current Medications: Active Medications Acetaminophen (Tylenol -) 650 mg PO Q6H PRN PRN Reason: FEVER Albuterol Sulfate (Ventolin 0.083% Nebulizer Soln -) 1 amp NEB Q6H PRN PRN Reason: WHEEZING Albuterol/Ipratropium (Duoneb -) 1 amp NEB RQID [facility] Last Admin: 04/18/18 07:41 Dose: 1 amp Amlodipine Besylate (Norvasc -) 10 mg PO DAILY [facility] Last Admin: 04/18/18 10:57 Dose: 10 mg Amoxicillin/Clavulanate Potassium (Augmentin - 875mg Tablet) 1 tab PO BID@0800, 1730 [facility] Last Admin: 04/18/18 08:52 Dose: 1 tab Apixaban (Eliquis -) 5 mg PO BID [facility] Last Admin: 04/18/18 10:57 Dose: 5 mg Atorvastatin Calcium (Lipitor -) 20 mg PO HS [facility] Last Admin: 04/17/18 21:16 Dose: 20 mg Chlordiazepoxide HCl (Librium -) 25 mg PO Q4H PRN PRN Reason: WITHDRAWAL(CONT SUBST) Stop: 04/20/18 23:59 Chlordiazepoxide HCl (Librium -) 15 mg PO Q6HPO [facility] Stop: 04/19/18 06:01 Last Admin: 04/18/18 11:04 Dose: 15 mg Folic Acid (Folic Acid -) 1 mg PO DAILY [facility] Last Admin: 04/18/18 10:57 Dose: 1 mg Isosorbide Mononitrate (Imdur -) 30 mg PO DAILY [facility] Last Admin: 04/18/18 10:57 Dose: 30 mg Lorazepam (Ativan Injection -) 1 mg IM Q6H PRN PRN Reason: AGITATION Last Admin: 04/16/18 01:44 Dose: 1 mg Methadone HCl (Dolophine -) 30 mg PO DAILY@0600 [facility] Last Admin: 04/18/18 05:15 Dose: 30 mg Metoprolol Succinate (Toprol Xl -) 50 mg PO DAILY [facility] Last Admin: 04/18/18 10:57 Dose: 50 mg Prednisone (Deltasone -) 20 mg PO DAILY [facility] Tamsulosin HCl (Flomax -) 0.4 mg PO 0830 [facility] Last Admin: 04/18/18 08:52 Dose: 0.4 mg Thiamine HCl (Vitamin B1 -) 100 mg PO DAILY [facility] Last Admin: 04/18/18 10:57 Dose: 100 mg Trazodone HCl (Desyrel -) 50 mg PO HS [facility] Last Admin: 04/17/18 21:16 Dose: 50 mg - Objective Vital Signs: Vital Signs Temperature 98.5 F 04/18/18 06:10 Pulse Rate 80 04/18/18 06:10 Respiratory Rate 18 04/18/18 06:10 Blood Pressure 135/75 04/18/18 06:10 O2 Sat by Pulse Oximetry (%) 97 04/17/18 21:00 Constitutional: Yes: No Distress, Anxious Cardiovascular: Yes: Regular Rate and Rhythm Respiratory: Yes: Other (occ wheeze, no rhonchi) Gastrointestinal: Yes: Normal Bowel Sounds, Soft Extremities: Yes: WNL Edema: No Neurological: Yes: Alert, Oriented Labs: CBC, BMP 04/15/18 16:40 04/15/18 18:15 - ....Imaging Cat Scan: Report Reviewed Problem List - Problems (1) Alcohol withdrawal Code(s): F10.239 - ALCOHOL DEPENDENCE WITH WITHDRAWAL, UNSPECIFIED Qualifiers: Complication of substance-induced condition: with unspecified complication Qualified Code(s): F10.239 - Alcohol dependence with withdrawal, unspecified (2) COPD (chronic obstructive pulmonary disease) Code(s): J44.9 - CHRONIC OBSTRUCTIVE PULMONARY DISEASE, UNSPECIFIED Assessment/Plan Chronic resp failure SOB - O2 NC COPD Ex-smoker Alcohol abuse/withdrawal ? infiltrate in the lung -cont. empiric po antibiotics for now, will consider d/c if stable monitor vitals
--- NOTE | 2018-04-18 17:34 | PN ---
Progress Note, Physician History of Present Illness: doing well - Current Medication List Current Medications: Active Medications Acetaminophen (Tylenol -) 650 mg PO Q6H PRN PRN Reason: FEVER Albuterol Sulfate (Ventolin 0.083% Nebulizer Soln -) 1 amp NEB Q6H PRN PRN Reason: WHEEZING Albuterol/Ipratropium (Duoneb -) 1 amp NEB RQID [facility] Last Admin: 04/18/18 16:39 Dose: 1 amp Amlodipine Besylate (Norvasc -) 10 mg PO DAILY [facility] Last Admin: 04/18/18 10:57 Dose: 10 mg Amoxicillin/Clavulanate Potassium (Augmentin - 875mg Tablet) 1 tab PO BID@0800, 1730 [facility] Last Admin: 04/18/18 17:18 Dose: 1 tab Apixaban (Eliquis -) 5 mg PO BID [facility] Last Admin: 04/18/18 10:57 Dose: 5 mg Atorvastatin Calcium (Lipitor -) 20 mg PO HS [facility] Last Admin: 04/17/18 21:16 Dose: 20 mg Chlordiazepoxide HCl (Librium -) 25 mg PO Q4H PRN PRN Reason: WITHDRAWAL(CONT SUBST) Stop: 04/20/18 23:59 Chlordiazepoxide HCl (Librium -) 15 mg PO Q6HPO [facility] Stop: 04/19/18 06:01 Last Admin: 04/18/18 17:18 Dose: 15 mg Folic Acid (Folic Acid -) 1 mg PO DAILY [facility] Last Admin: 04/18/18 10:57 Dose: 1 mg Isosorbide Mononitrate (Imdur -) 30 mg PO DAILY [facility] Last Admin: 04/18/18 10:57 Dose: 30 mg Lorazepam (Ativan Injection -) 1 mg IM Q6H PRN PRN Reason: AGITATION Last Admin: 04/16/18 01:44 Dose: 1 mg Methadone HCl (Dolophine -) 30 mg PO DAILY@0600 [facility] Last Admin: 04/18/18 05:15 Dose: 30 mg Metoprolol Succinate (Toprol Xl -) 50 mg PO DAILY [facility] Last Admin: 04/18/18 10:57 Dose: 50 mg Prednisone (Deltasone -) 20 mg PO DAILY [facility] Tamsulosin HCl (Flomax -) 0.4 mg PO 0830 [facility] Last Admin: 04/18/18 08:52 Dose: 0.4 mg Thiamine HCl (Vitamin B1 -) 100 mg PO DAILY [facility] Last Admin: 04/18/18 10:57 Dose: 100 mg Trazodone HCl (Desyrel -) 50 mg PO HS [facility] Last Admin: 04/17/18 21:16 Dose: 50 mg - Objective Vital Signs: Vital Signs Temperature 98.6 F 04/18/18 15:44 Pulse Rate 75 04/18/18 15:44 Respiratory Rate 18 04/18/18 15:44 Blood Pressure 115/71 04/18/18 15:44 O2 Sat by Pulse Oximetry (%) 96 04/18/18 09:00 Constitutional: Yes: No Distress HENT: Yes: Atraumatic Neck: Yes: Supple Cardiovascular: Yes: Regular Rate and Rhythm Respiratory: Yes: Rhonchi Gastrointestinal: Yes: Normal Bowel Sounds Extremities: Yes: WNL Neurological: Yes: Alert, Oriented Labs: CBC, BMP 04/15/18 16:40 04/15/18 18:15 Problem List - Problems (1) COPD (chronic obstructive pulmonary disease) Assessment/Plan: duo nebs prn iv steroids Code(s): J44.9 - CHRONIC OBSTRUCTIVE PULMONARY DISEASE, UNSPECIFIED (2) Alcohol withdrawal Assessment/Plan: on librium protocol detox consult Code(s): F10.239 - ALCOHOL DEPENDENCE WITH WITHDRAWAL, UNSPECIFIED Qualifiers: Complication of substance-induced condition: with unspecified complication Qualified Code(s): F10.239 - Alcohol dependence with withdrawal, unspecified (3) Pneumonia Assessment/Plan: po abx id consult Code(s): J18.9 - PNEUMONIA, UNSPECIFIED ORGANISM
[2018-04-18] MEDS: traZODone HCL 50 MG TABLET (FP) PO SCH (21:27)
[2018-04-18] MEDS: ATORVASTATIN CA 20 MG TABLET (FP) PO SCH (21:27)
[2018-04-19] MEDS: chlordiazePOXIDE 5 MG CAPSULE PO SCH ×2 (00:15→06:10)
[2018-04-19] MEDS: METHADONE HCL 10 MG TABLET PO SCH (06:10)
[2018-04-19 07:37] LABS: BASO % 0.1 % (0-2.0); EOS % 0.4 % (0-4.5); HEMATOCRIT 30.7 % (35.4-49); HEMOGLOBIN 10.4 GM/dL (11.7-16.9); LYMPH % 12.1 % (8-40); MCH 32.8 pg (25.7-33.7); MCHC 33.7 g/dl (32.0-35.9); MEAN CELL VOLUME 97.3 fl (80-96); MEAN PLT VOLUME 9.6 fl (7.5-11.1); MONO % 7.9 % (3.8-10.2); NEUT % 79.5 % (42.8-82.8); PLATELET COUNT 61 K/MM3 (134-434); RBC 3.16 M/mm3 (4.00-5.60); RDW 15.9 % (11.9-15.9); WHITE BLOOD COUNT 6.1 K/mm3 (4.0-10.0)
[2018-04-19] MEDS: ALBUTEROL SO4 2.5/IPRATROPIUM 0.5 INH SOL 3 ML VIAL.NEB. NEB SCH ×4 (07:42→20:16)
[2018-04-19] MEDS: AMOX TR/POT CLAV 875MG/125MG TABLETS (FP) PO SCH ×2 (08:23→16:37)
[2018-04-19] MEDS: TAMSULOSIN HCL 0.4 MG CAP.ER.24H (FP) PO SCH (08:23)
[2018-04-19 08:31] LABS: CHLORIDE 98 mmol/L (98-107); POTASSIUM 3.1 mmol/L (3.5-5.1); SODIUM 138 mmol/L (136-145)
[2018-04-19 08:37] LABS: ALBUMIN 2.8 g/dl (3.4-5.0); ALK PHOS 104 U/L (45-117); ANION GAP 6 (8-16); BILIRUBIN,TOTAL 0.4 mg/dL (0.2-1.0); BLOOD UREA NITROGEN 25 mg/dL (7-18); CALCIUM 8.9 mg/dL (8.5-10.1); CO2 34 mmol/L (21-32); GLUCOSE,RANDOM 138 mg/dL (74-106); SGOT/AST 59 U/L (15-37); SGPT/ALT 56 U/L (12-78); TOT PROT 5.4 g/dl (6.4-8.2)
[2018-04-19] MEDS ORDERED: PT OWN MED DRAWER 7, Y5N ONE (09:05)
[2018-04-19] MEDS: ISOSORBIDE MONONITRATE 30 MG TAB.SR.24H (FP) PO SCH (09:13)
[2018-04-19] MEDS: amLODIPine BESYLATE 10 MG TABLET (FP) PO SCH (09:13)
[2018-04-19] MEDS: APIXABAN 5 MG TABLET PO SCH ×2 (09:13→21:16)
[2018-04-19] MEDS: THIAMINE HCL 100 MG TABLET (FP) PO SCH (09:13)
[2018-04-19] MEDS: FOLIC ACID 1 MG TABLET (FP) PO SCH (09:13)
--- NOTE | 2018-04-19 11:32 | PN ---
Progress Note (short form) - Note Progress Note: PULMONARY Denies shortness of breath or chest pain. Still feels shaky. Vital Signs Period Temp Pulse Resp BP Sys/Mcgill Pulse Ox Last 24 Hr 98.6 F-98.9 F 74-75 18-20 108-115/69-71 96 Gen: less tremulous Heart: RRR Lung: decreased breath sounds at the bases Abd: soft, nontender Ext: no edema CBC, BMP 04/19/18 06:56 04/19/18 06:54 Active Medications Acetaminophen (Tylenol -) 650 mg PO Q6H PRN PRN Reason: FEVER Albuterol Sulfate (Ventolin 0.083% Nebulizer Soln -) 1 amp NEB Q6H PRN PRN Reason: WHEEZING Albuterol/Ipratropium (Duoneb -) 1 amp NEB RQID [facility] Last Admin: 04/19/18 11:29 Dose: 1 amp Amlodipine Besylate (Norvasc -) 10 mg PO DAILY [facility] Last Admin: 04/19/18 09:13 Dose: 10 mg Amoxicillin/Clavulanate Potassium (Augmentin - 875mg Tablet) 1 tab PO BID@0800, 1730 [facility] Last Admin: 04/19/18 08:23 Dose: 1 tab Apixaban (Eliquis -) 5 mg PO BID [facility] Last Admin: 04/19/18 09:13 Dose: 5 mg Atorvastatin Calcium (Lipitor -) 20 mg PO HS [facility] Last Admin: 04/18/18 21:27 Dose: 20 mg Chlordiazepoxide HCl (Librium -) 25 mg PO Q4H PRN PRN Reason: WITHDRAWAL(CONT SUBST) Stop: 04/20/18 23:59 Folic Acid (Folic Acid -) 1 mg PO DAILY [facility] Last Admin: 04/19/18 09:13 Dose: 1 mg Isosorbide Mononitrate (Imdur -) 30 mg PO DAILY [facility] Last Admin: 04/19/18 09:13 Dose: 30 mg Lorazepam (Ativan Injection -) 1 mg IM Q6H PRN PRN Reason: AGITATION Last Admin: 04/16/18 01:44 Dose: 1 mg Methadone HCl (Dolophine -) 30 mg PO DAILY@0600 [facility] Last Admin: 04/19/18 06:10 Dose: 30 mg Metoprolol Succinate (Toprol Xl -) 50 mg PO DAILY [facility] Last Admin: 04/19/18 09:13 Dose: 50 mg Prednisone (Deltasone -) 20 mg PO DAILY [facility] Last Admin: 04/19/18 09:13 Dose: 20 mg Tamsulosin HCl (Flomax -) 0.4 mg PO 0830 [facility] Last Admin: 04/19/18 08:23 Dose: 0.4 mg Thiamine HCl (Vitamin B1 -) 100 mg PO DAILY [facility] Last Admin: 04/19/18 09:13 Dose: 100 mg Trazodone HCl (Desyrel -) 50 mg PO HS [facility] Last Admin: 04/18/18 21:27 Dose: 50 mg A/P Shortness of Breath Chronic Hypoxic Respiratory Failure r/o CHF COPD - less likely acute exacerbation Alcohol Abuse HTN Former Long time Smoker - will d/c steroids - inhaled bronchodilators standing and PRN - O2 to keep SpO2 >90% - alcohol detox - DVT prophylaxis Problem List - Problems (1) Alcohol withdrawal Code(s): F10.239 - ALCOHOL DEPENDENCE WITH WITHDRAWAL, UNSPECIFIED Qualifiers: Complication of substance-induced condition: with unspecified complication Qualified Code(s): F10.239 - Alcohol dependence with withdrawal, unspecified (2) COPD (chronic obstructive pulmonary disease) Code(s): J44.9 - CHRONIC OBSTRUCTIVE PULMONARY DISEASE, UNSPECIFIED
[2018-04-19] MEDS: POTASSIUM CHLORIDE TABS 20 MEQ TABLET.ER (FP) PO SCH ×2 (12:08→16:37)
--- NOTE | 2018-04-19 14:06 | PN ---
Progress Note, Physician History of Present Illness: Pt with improvement in SOB, no productive cough. Has been having intermittent loose BMs but none today. No abd pain. Remains afebrile. - Current Medication List Current Medications: Active Medications Acetaminophen (Tylenol -) 650 mg PO Q6H PRN PRN Reason: FEVER Albuterol Sulfate (Ventolin 0.083% Nebulizer Soln -) 1 amp NEB Q6H PRN PRN Reason: WHEEZING Albuterol/Ipratropium (Duoneb -) 1 amp NEB RQID [facility] Last Admin: 04/19/18 11:29 Dose: 1 amp Amlodipine Besylate (Norvasc -) 10 mg PO DAILY [facility] Last Admin: 04/19/18 09:13 Dose: 10 mg Amoxicillin/Clavulanate Potassium (Augmentin - 875mg Tablet) 1 tab PO BID@0800, 1730 [facility] Last Admin: 04/19/18 08:23 Dose: 1 tab Apixaban (Eliquis -) 5 mg PO BID [facility] Last Admin: 04/19/18 09:13 Dose: 5 mg Atorvastatin Calcium (Lipitor -) 20 mg PO HS [facility] Last Admin: 04/18/18 21:27 Dose: 20 mg Chlordiazepoxide HCl (Librium -) 25 mg PO Q4H PRN PRN Reason: WITHDRAWAL(CONT SUBST) Stop: 04/20/18 23:59 Folic Acid (Folic Acid -) 1 mg PO DAILY [facility] Last Admin: 04/19/18 09:13 Dose: 1 mg Isosorbide Mononitrate (Imdur -) 30 mg PO DAILY [facility] Last Admin: 04/19/18 09:13 Dose: 30 mg Lorazepam (Ativan Injection -) 1 mg IM Q6H PRN PRN Reason: AGITATION Last Admin: 04/16/18 01:44 Dose: 1 mg Methadone HCl (Dolophine -) 30 mg PO DAILY@0600 [facility] Last Admin: 04/19/18 06:10 Dose: 30 mg Metoprolol Succinate (Toprol Xl -) 50 mg PO DAILY [facility] Last Admin: 04/19/18 09:13 Dose: 50 mg Potassium Chloride (K-Dur -) 40 meq PO Q4H [facility] Stop: 04/19/18 16:01 Last Admin: 04/19/18 12:08 Dose: 40 meq Tamsulosin HCl (Flomax -) 0.4 mg PO 0830 [facility] Last Admin: 04/19/18 08:23 Dose: 0.4 mg Thiamine HCl (Vitamin B1 -) 100 mg PO DAILY [facility] Last Admin: 04/19/18 09:13 Dose: 100 mg Trazodone HCl (Desyrel -) 50 mg PO HS [facility] Last Admin: 04/18/18 21:27 Dose: 50 mg - Objective Vital Signs: Vital Signs Temperature 98.0 F 04/19/18 10:00 Pulse Rate 73 04/19/18 10:00 Respiratory Rate 20 04/19/18 10:00 Blood Pressure 114/69 04/19/18 10:00 O2 Sat by Pulse Oximetry (%) 98 04/19/18 09:00 Constitutional: Yes: No Distress, Calm Cardiovascular: Yes: Regular Rate and Rhythm Respiratory: Yes: Other (decreased BS bibasilarly) Gastrointestinal: Yes: Normal Bowel Sounds, Soft Neurological: Yes: Alert Labs: CBC, BMP 04/19/18 06:56 04/19/18 06:54 Problem List - Problems (1) Alcohol withdrawal Code(s): F10.239 - ALCOHOL DEPENDENCE WITH WITHDRAWAL, UNSPECIFIED Qualifiers: Complication of substance-induced condition: with unspecified complication Qualified Code(s): F10.239 - Alcohol dependence with withdrawal, unspecified (2) COPD (chronic obstructive pulmonary disease) Code(s): J44.9 - CHRONIC OBSTRUCTIVE PULMONARY DISEASE, UNSPECIFIED Assessment/Plan COPD SOB Ex-smoker Alcohol abuse/withdrawal Possible aspiration -cont. augmentin for now, will d/c if remains stable - continue monitor vitals - if loose BMs noted send stool CDT
--- NOTE | 2018-04-19 16:53 | PN ---
Progress Note, Physician - Current Medication List Current Medications: Active Medications Acetaminophen (Tylenol -) 650 mg PO Q6H PRN PRN Reason: FEVER Albuterol Sulfate (Ventolin 0.083% Nebulizer Soln -) 1 amp NEB Q6H PRN PRN Reason: WHEEZING Albuterol/Ipratropium (Duoneb -) 1 amp NEB RQID [facility] Last Admin: 04/19/18 16:08 Dose: 1 amp Amlodipine Besylate (Norvasc -) 10 mg PO DAILY [facility] Last Admin: 04/19/18 09:13 Dose: 10 mg Amoxicillin/Clavulanate Potassium (Augmentin - 875mg Tablet) 1 tab PO BID@0800, 1730 [facility] Last Admin: 04/19/18 16:37 Dose: 1 tab Apixaban (Eliquis -) 5 mg PO BID [facility] Last Admin: 04/19/18 09:13 Dose: 5 mg Atorvastatin Calcium (Lipitor -) 20 mg PO [facility] Last Admin: 04/18/18 21:27 Dose: 20 mg Chlordiazepoxide HCl (Librium -) 25 mg PO Q4H PRN PRN Reason: WITHDRAWAL(CONT SUBST) Stop: 04/20/18 23:59 Folic Acid (Folic Acid -) 1 mg PO DAILY [facility] Last Admin: 04/19/18 09:13 Dose: 1 mg Isosorbide Mononitrate (Imdur -) 30 mg PO DAILY [facility] Last Admin: 04/19/18 09:13 Dose: 30 mg Lorazepam (Ativan Injection -) 1 mg IM Q6H PRN PRN Reason: AGITATION Last Admin: 04/16/18 01:44 Dose: 1 mg Methadone HCl (Dolophine -) 30 mg PO DAILY@0600 [facility] Last Admin: 04/19/18 06:10 Dose: 30 mg Metoprolol Succinate (Toprol Xl -) 50 mg PO DAILY [facility] Last Admin: 04/19/18 09:13 Dose: 50 mg Tamsulosin HCl (Flomax -) 0.4 mg PO 0830 [facility] Last Admin: 04/19/18 08:23 Dose: 0.4 mg Thiamine HCl (Vitamin B1 -) 100 mg PO DAILY [facility] Last Admin: 04/19/18 09:13 Dose: 100 mg Trazodone HCl (Desyrel -) 50 mg PO [facility] Last Admin: 04/18/18 21:27 Dose: 50 mg - Objective Vital Signs: Vital Signs Temperature 98.0 F 04/19/18 10:00 Pulse Rate 73 04/19/18 10:00 Respiratory Rate 20 04/19/18 10:00 Blood Pressure 114/69 04/19/18 10:00 O2 Sat by Pulse Oximetry (%) 98 04/19/18 09:00 Constitutional: Yes: No Distress HENT: Yes: Atraumatic Neck: Yes: Supple Cardiovascular: Yes: Regular Rate and Rhythm Respiratory: Yes: Rhonchi Gastrointestinal: Yes: Normal Bowel Sounds Extremities: Yes: WNL Neurological: Yes: Alert, Oriented Labs: CBC, BMP 04/19/18 06:56 04/19/18 06:54 Problem List - Problems (1) COPD (chronic obstructive pulmonary disease) Assessment/Plan: duo nebs prn off of abx on oxygen Code(s): J44.9 - CHRONIC OBSTRUCTIVE PULMONARY DISEASE, UNSPECIFIED (2) Alcohol withdrawal Assessment/Plan: librium protocol completed now on prn Code(s): F10.239 - ALCOHOL DEPENDENCE WITH WITHDRAWAL, UNSPECIFIED Qualifiers: Complication of substance-induced condition: with unspecified complication Qualified Code(s): F10.239 - Alcohol dependence with withdrawal, unspecified (3) Pneumonia Assessment/Plan: po abx..4 more days Code(s): J18.9 - PNEUMONIA, UNSPECIFIED ORGANISM
[2018-04-19] MEDS: traZODone HCL 50 MG TABLET (FP) PO SCH (21:16)
[2018-04-19] MEDS: ATORVASTATIN CA 20 MG TABLET (FP) PO SCH (21:16)
[2018-04-20] MEDS: METHADONE HCL 10 MG TABLET PO SCH (05:37)
[2018-04-20] MEDS: ALBUTEROL SO4 2.5/IPRATROPIUM 0.5 INH SOL 3 ML VIAL.NEB. NEB SCH ×4 (07:35→20:50)
[2018-04-20] MEDS: AMOX TR/POT CLAV 875MG/125MG TABLETS (FP) PO SCH (08:49)
[2018-04-20] MEDS: TAMSULOSIN HCL 0.4 MG CAP.ER.24H (FP) PO SCH (08:49)
--- NOTE | 2018-04-20 09:45 | PN ---
Progress Note, Physician History of Present Illness: stable doing well no complaints - Current Medication List Current Medications: Active Medications Acetaminophen (Tylenol -) 650 mg PO Q6H PRN PRN Reason: FEVER Albuterol Sulfate (Ventolin 0.083% Nebulizer Soln -) 1 amp NEB Q6H PRN PRN Reason: WHEEZING Albuterol/Ipratropium (Duoneb -) 1 amp NEB RQID [facility] Last Admin: 04/20/18 07:35 Dose: 1 amp Amlodipine Besylate (Norvasc -) 10 mg PO DAILY [facility] Last Admin: 04/19/18 09:13 Dose: 10 mg Amoxicillin/Clavulanate Potassium (Augmentin - 875mg Tablet) 1 tab PO BID@0800, 1730 [facility] Last Admin: 04/20/18 08:49 Dose: 1 tab Apixaban (Eliquis -) 5 mg PO BID [facility] Last Admin: 04/19/18 21:16 Dose: 5 mg Atorvastatin Calcium (Lipitor -) 20 mg PO HS [facility] Last Admin: 04/19/18 21:16 Dose: 20 mg Chlordiazepoxide HCl (Librium -) 25 mg PO Q4H PRN PRN Reason: WITHDRAWAL(CONT SUBST) Stop: 04/20/18 23:59 Last Admin: 04/19/18 21:16 Dose: 25 mg Folic Acid (Folic Acid -) 1 mg PO DAILY [facility] Last Admin: 04/19/18 09:13 Dose: 1 mg Isosorbide Mononitrate (Imdur -) 30 mg PO DAILY [facility] Last Admin: 04/19/18 09:13 Dose: 30 mg Lorazepam (Ativan Injection -) 1 mg IM Q6H PRN PRN Reason: AGITATION Last Admin: 04/16/18 01:44 Dose: 1 mg Methadone HCl (Dolophine -) 30 mg PO DAILY@0600 [facility] Last Admin: 04/20/18 05:37 Dose: 30 mg Metoprolol Succinate (Toprol Xl -) 50 mg PO DAILY [facility] Last Admin: 04/19/18 09:13 Dose: 50 mg Tamsulosin HCl (Flomax -) 0.4 mg PO 0830 [facility] Last Admin: 04/20/18 08:49 Dose: 0.4 mg Thiamine HCl (Vitamin B1 -) 100 mg PO DAILY [facility] Last Admin: 04/19/18 09:13 Dose: 100 mg Trazodone HCl (Desyrel -) 50 mg PO HS [facility] Last Admin: 04/19/18 21:16 Dose: 50 mg - Objective Vital Signs: Vital Signs Temperature 97.8 F 04/20/18 06:35 Pulse Rate 61 04/20/18 06:35 Respiratory Rate 20 04/20/18 06:35 Blood Pressure 138/80 04/20/18 06:35 O2 Sat by Pulse Oximetry (%) 98 04/19/18 20:57 Constitutional: Yes: No Distress, Calm Cardiovascular: Yes: Regular Rate and Rhythm Respiratory: Yes: Regular, CTA Bilaterally Gastrointestinal: Yes: Normal Bowel Sounds, Soft Musculoskeletal: Yes: WNL Extremities: Yes: WNL Neurological: Yes: Alert, Oriented Psychiatric: Yes: Alert, Oriented Labs: CBC, BMP 04/19/18 06:56 04/19/18 06:54 Assessment/Plan Problem List - Problems (1) COPD (chronic obstructive pulmonary disease) Code(s): J44.9 - CHRONIC OBSTRUCTIVE PULMONARY DISEASE, UNSPECIFIED (2) Alcohol withdrawal Code(s): F10.239 - ALCOHOL DEPENDENCE WITH WITHDRAWAL, UNSPECIFIED Qualifiers: Complication of substance-induced condition: with unspecified complication Qualified Code(s): F10.239 - Alcohol dependence with withdrawal, unspecified (3) Pneumonia Code(s): J18.9 - PNEUMONIA, UNSPECIFIED ORGANISM plan continue current mgmt will stop abx incentive scottie rest continue current mgmt
--- NOTE | 2018-04-20 10:36 | PN ---
Progress Note (short form) - Note Progress Note: Denies shortness of breath or chest pain. No acute events overnight. Intake & Output 04/17/18 04/18/18 04/19/18 04/20/18 23:59 23:59 23:59 23:59 Intake Total 200 900 640 Output Total 600 Balance 200 900 640 -600 Last Vital Signs Temp Pulse Resp BP Pulse Ox 97.8 F 61 20 138/80 98 04/20/18 06:35 04/20/18 06:35 04/20/18 06:35 04/20/18 06:35 04/19/18 20:57 Active Medications Acetaminophen (Tylenol -) 650 mg PO Q6H PRN PRN Reason: FEVER Albuterol Sulfate (Ventolin 0.083% Nebulizer Soln -) 1 amp NEB Q6H PRN PRN Reason: WHEEZING Albuterol/Ipratropium (Duoneb -) 1 amp NEB RQID [facility] Last Admin: 04/20/18 07:35 Dose: 1 amp Amlodipine Besylate (Norvasc -) 10 mg PO DAILY [facility] Last Admin: 04/19/18 09:13 Dose: 10 mg Apixaban (Eliquis -) 5 mg PO BID [facility] Last Admin: 04/19/18 21:16 Dose: 5 mg Atorvastatin Calcium (Lipitor -) 20 mg PO HS [facility] Last Admin: 04/19/18 21:16 Dose: 20 mg Chlordiazepoxide HCl (Librium -) 25 mg PO Q4H PRN PRN Reason: WITHDRAWAL(CONT SUBST) Stop: 04/20/18 23:59 Last Admin: 04/19/18 21:16 Dose: 25 mg Folic Acid (Folic Acid -) 1 mg PO DAILY [facility] Last Admin: 04/19/18 09:13 Dose: 1 mg Isosorbide Mononitrate (Imdur -) 30 mg PO DAILY [facility] Last Admin: 04/19/18 09:13 Dose: 30 mg Lorazepam (Ativan Injection -) 1 mg IM Q6H PRN PRN Reason: AGITATION Last Admin: 04/16/18 01:44 Dose: 1 mg Methadone HCl (Dolophine -) 30 mg PO DAILY@0600 [facility] Last Admin: 04/20/18 05:37 Dose: 30 mg Metoprolol Succinate (Toprol Xl -) 50 mg PO DAILY [facility] Last Admin: 04/19/18 09:13 Dose: 50 mg Tamsulosin HCl (Flomax -) 0.4 mg PO 0830 [facility] Last Admin: 04/20/18 08:49 Dose: 0.4 mg Thiamine HCl (Vitamin B1 -) 100 mg PO DAILY [facility] Last Admin: 04/19/18 09:13 Dose: 100 mg Trazodone HCl (Desyrel -) 50 mg PO HS [facility] Last Admin: 04/19/18 21:16 Dose: 50 mg Gen: NAD Heart: RRR Lung: decreased breath sounds at the bases Abd: soft, nontender Ext: no edema Problem List - Problems (1) Alcohol withdrawal Code(s): F10.239 - ALCOHOL DEPENDENCE WITH WITHDRAWAL, UNSPECIFIED Qualifiers: Complication of substance-induced condition: with unspecified complication Qualified Code(s): F10.239 - Alcohol dependence with withdrawal, unspecified (2) COPD (chronic obstructive pulmonary disease) Code(s): J44.9 - CHRONIC OBSTRUCTIVE PULMONARY DISEASE, UNSPECIFIED A/P Shortness of Breath Chronic Hypoxic Respiratory Failure r/o CHF COPD - less likely acute exacerbation Alcohol Abuse HTN Former Long time Smoker - Monitor off steroids - inhaled bronchodilators standing and PRN - O2 to keep SpO2 >90% - alcohol detox - DVT prophylaxis Dr Srivastava
[2018-04-20] MEDS: ISOSORBIDE MONONITRATE 30 MG TAB.SR.24H (FP) PO SCH (10:50)
[2018-04-20] MEDS: THIAMINE HCL 100 MG TABLET (FP) PO SCH (10:50)
[2018-04-20] MEDS: amLODIPine BESYLATE 10 MG TABLET (FP) PO SCH (10:50)
[2018-04-20] MEDS: FOLIC ACID 1 MG TABLET (FP) PO SCH (10:50)
[2018-04-20] MEDS: APIXABAN 5 MG TABLET PO SCH ×2 (10:50→23:17)
[2018-04-20] MEDS ORDERED: PT OWN MED DRAWER 7, Y5N ONE ×2 (20:39→22:26)
--- NOTE | 2018-04-20 21:45 | PN ---
Progress Note, Physician History of Present Illness: doing well - Current Medication List Current Medications: Active Medications Acetaminophen (Tylenol -) 650 mg PO Q6H PRN PRN Reason: FEVER Albuterol Sulfate (Ventolin 0.083% Nebulizer Soln -) 1 amp NEB Q6H PRN PRN Reason: WHEEZING Albuterol/Ipratropium (Duoneb -) 1 amp NEB RQID [facility] Last Admin: 04/20/18 20:50 Dose: 1 amp Amlodipine Besylate (Norvasc -) 10 mg PO DAILY [facility] Last Admin: 04/20/18 10:50 Dose: 10 mg Apixaban (Eliquis -) 5 mg PO BID [facility] Last Admin: 04/20/18 10:50 Dose: 5 mg Atorvastatin Calcium (Lipitor -) 20 mg PO HS [facility] Last Admin: 04/19/18 21:16 Dose: 20 mg Chlordiazepoxide HCl (Librium -) 25 mg PO Q4H PRN PRN Reason: WITHDRAWAL(CONT SUBST) Stop: 04/20/18 23:59 Last Admin: 04/19/18 21:16 Dose: 25 mg Folic Acid (Folic Acid -) 1 mg PO DAILY [facility] Last Admin: 04/20/18 10:50 Dose: 1 mg Isosorbide Mononitrate (Imdur -) 30 mg PO DAILY [facility] Last Admin: 04/20/18 10:50 Dose: 30 mg Lorazepam (Ativan Injection -) 1 mg IM Q6H PRN PRN Reason: AGITATION Last Admin: 04/16/18 01:44 Dose: 1 mg Methadone HCl (Dolophine -) 30 mg PO DAILY@0600 [facility] Last Admin: 04/20/18 05:37 Dose: 30 mg Metoprolol Succinate (Toprol Xl -) 50 mg PO DAILY [facility] Last Admin: 04/20/18 10:50 Dose: 50 mg Tamsulosin HCl (Flomax -) 0.4 mg PO 0830 [facility] Last Admin: 04/20/18 08:49 Dose: 0.4 mg Thiamine HCl (Vitamin B1 -) 100 mg PO DAILY [facility] Last Admin: 04/20/18 10:50 Dose: 100 mg Trazodone HCl (Desyrel -) 50 mg PO HS [facility] Last Admin: 04/19/18 21:16 Dose: 50 mg - Objective Vital Signs: Vital Signs Temperature 97.5 F L 04/20/18 17:13 Pulse Rate 72 04/20/18 17:13 Respiratory Rate 18 04/20/18 17:13 Blood Pressure 93/64 04/20/18 17:13 O2 Sat by Pulse Oximetry (%) 98 04/20/18 09:00 HENT: Yes: Atraumatic Neck: Yes: Supple Cardiovascular: Yes: Regular Rate and Rhythm Respiratory: Yes: CTA Bilaterally Gastrointestinal: Yes: Normal Bowel Sounds Extremities: Yes: WNL Edema: No Peripheral Pulses WNL: Yes Neurological: Yes: Alert, Oriented Labs: CBC, BMP 04/19/18 06:56 04/19/18 06:54 Problem List - Problems (1) COPD (chronic obstructive pulmonary disease) Assessment/Plan: duo nebs prn on oxygen Code(s): J44.9 - CHRONIC OBSTRUCTIVE PULMONARY DISEASE, UNSPECIFIED (2) Alcohol withdrawal Assessment/Plan: librium protocol completed now on prn Code(s): F10.239 - ALCOHOL DEPENDENCE WITH WITHDRAWAL, UNSPECIFIED Qualifiers: Complication of substance-induced condition: with unspecified complication Qualified Code(s): F10.239 - Alcohol dependence with withdrawal, unspecified (3) Pneumonia Assessment/Plan: po abx..4 more days Code(s): J18.9 - PNEUMONIA, UNSPECIFIED ORGANISM
[2018-04-20] MEDS: traZODone HCL 50 MG TABLET (FP) PO SCH (23:17)
[2018-04-20] MEDS: ATORVASTATIN CA 20 MG TABLET (FP) PO SCH (23:17)
[2018-04-21] MEDS: METHADONE HCL 10 MG TABLET PO SCH (05:28)
[2018-04-21] MEDS: TAMSULOSIN HCL 0.4 MG CAP.ER.24H (FP) PO SCH (08:35)
[2018-04-21] MEDS: ALBUTEROL SO4 2.5/IPRATROPIUM 0.5 INH SOL 3 ML VIAL.NEB. NEB SCH (08:49)
[2018-04-21] MEDS: amLODIPine BESYLATE 10 MG TABLET (FP) PO SCH (09:27)
[2018-04-21] MEDS: ISOSORBIDE MONONITRATE 30 MG TAB.SR.24H (FP) PO SCH (09:27)
[2018-04-21] MEDS: APIXABAN 5 MG TABLET PO SCH (09:27)
[2018-04-21] MEDS: FOLIC ACID 1 MG TABLET (FP) PO SCH (09:27)
[2018-04-21] MEDS: THIAMINE HCL 100 MG TABLET (FP) PO SCH (09:27)
[2018-04-21 11:05] VITALS: BP 113/69; PULSE 73; TEMP 98.3
--- NOTE | 2018-04-21 16:45 | DS ---
Physical Examination Vital Signs: Vital Signs Temperature 98.3 F 04/21/18 10:00 Pulse Rate 73 04/21/18 10:00 Respiratory Rate 20 04/21/18 10:00 Blood Pressure 113/69 04/21/18 10:00 O2 Sat by Pulse Oximetry (%) 99 04/21/18 09:00 Constitutional: Yes: No Distress HENT: Yes: Atraumatic Neck: Yes: Supple Cardiovascular: Yes: Regular Rate and Rhythm Respiratory: Yes: CTA Bilaterally Gastrointestinal: Yes: Normal Bowel Sounds Extremities: Yes: WNL Edema: No Peripheral Pulses WNL: Yes Neurological: Yes: Alert, Oriented Labs: CBC, BMP 04/19/18 06:56 04/19/18 06:54 Discharge Summary Reason For Visit: ALCHOHOL WITHDRAWL SYNDROME Current Active Problems H/O ETOH abuse (Acute) Condition: Stable - Instructions Referrals: Maggie To MD [Staff Physician] - Dee Dee Dasilva MD [Staff Physician] - Disposition: I.P. ALCOHOL/SUBS ABUSE REHAB - Home Medications Comprehensive Discharge Medication List: Ambulatory Orders Albuterol 0.083% Nebulizer Elizabeth [Ventolin 0.083% Nebulizer Soln -] 1 neb NEB Q6H PRN 04/16/18 Amlodipine Besylate 10 mg PO DAILY 04/16/18 Apixaban [Eliquis] 5 mg PO BID 04/16/18 Atorvastatin Ca [Lipitor] 20 mg PO HS 04/16/18 Cyanocobalamin [Vitamin B12 -] 1,000 mg PO DAILY 04/16/18 Folic Acid 1 mg PO DAILY 04/16/18 Ipratropium 0.02% Nebulizer [Atrovent 0.02% Nebulizer -] 1 neb NEB Q6H 04/16/18 Isosorbide Mononitrate 30 mg PO DAILY 04/16/18 Metoprolol Succinate [Toprol Xl] 50 mg PO DAILY 04/16/18 Tamsulosin HCl [Flomax] 0.4 mg PO DAILY@1000 04/16/18 Thiamine HCl [Vitamin B-1] 100 mg PO DAILY 04/16/18 Trazodone HCl 50 mg PO HS 04/16/18 Amox-Tr/K Cl [Augmentin 875-125mg Tablet -] 1 tab PO BID@0800,1730 #6 tablet [facility]
== END 2018-04-21 10:50 | disposition other institution (70) | DRG 139 ==
LOC: JER 13:17 → JERBED 19:28 → J8W 04-16 02:28
PROVIDERS: ADMIT Internal Medicine; ATTEND Internal Medicine
DX: J18.9 Pneumonia, unspecified organism (principal); J96.11 Chronic respiratory failure with hypoxia; J44.9 Chronic obstructive pulmonary disease, unspecified; Z99.81 Dependence on supplemental oxygen; F10.230 Alcohol dependence with withdrawal, uncomplicated; I10 Essential (primary) hypertension; R00.0 Tachycardia, unspecified; Z87.891 Personal history of nicotine dependence; I51.7 Cardiomegaly; F41.9 Anxiety disorder, unspecified
CPT/HCPCS: 36415; 71045-TC-FY; 71250-TC; 80053; 80307; 82962; 85025; 87040; 93005; 93010; 93306-TC; 94640; 99284-25; J7620

== ENCOUNTER 2018-04-21 12:35 | Emergency (ER) | payer OTHER ==
--- NOTE | 2018-04-21 12:49 | PDOC ---
History of Present Illness - General Chief Complaint: Alcohol intoxication Stated Complaint: REVIST,RE DETOX Time Seen by Provider: 04/21/18 12:38 - History of Present Illness Initial Comments: 62 year old male with PMH of COPD, HTN, EtOH abuse, and recent admission for PNA and EtOH withdrawal presenting after rejection from [facility] detox facility because of logistical misunderstandings. Paulo ws apparently sent to [facility] for EtOH rehab services but they only perform detox services so patient was sent back to us. He otherwise remains stable on 2L of oxygen and is without complaints. His main complaint is that he is annoyed at the continuous transfers. 04/21/18 13:14 Past History - Past Medical History Allergies/Adverse Reactions: Allergies Allergy/AdvReac Type Severity Reaction Status Date / Time No Known Allergies Allergy Verified 04/21/18 12:46 Home Medications: Ambulatory Orders Albuterol 0.083% Nebulizer Elizabeth [Ventolin 0.083% Nebulizer Soln -] 1 neb NEB Q6H PRN 04/16/18 Amlodipine Besylate 10 mg PO DAILY 04/16/18 Apixaban [Eliquis] 5 mg PO BID 04/16/18 Atorvastatin Ca [Lipitor] 20 mg PO HS 04/16/18 Cyanocobalamin [Vitamin B12 -] 1,000 mg PO DAILY 04/16/18 Folic Acid 1 mg PO DAILY 04/16/18 Ipratropium 0.02% Nebulizer [Atrovent 0.02% Nebulizer -] 1 neb NEB Q6H 04/16/18 Isosorbide Mononitrate 30 mg PO DAILY 04/16/18 Metoprolol Succinate [Toprol Xl] 50 mg PO DAILY 04/16/18 Tamsulosin HCl [Flomax] 0.4 mg PO DAILY@1000 04/16/18 Thiamine HCl [Vitamin B-1] 100 mg PO DAILY 04/16/18 Trazodone HCl 50 mg PO HS 04/16/18 Amox-Tr/K Cl [Augmentin 875-125mg Tablet -] 1 tab PO BID@0800,1730 #6 tablet Cardiac Disorders: Yes COPD: Yes HTN: Yes Hypercholesterolemia: Yes - Suicide/Smoking/Psychosocial Hx Smoking History: Unknown if ever smoked Have you smoked in the past 12 months: No Information on smoking cessation initiated: No Hx Alcohol Use: No Drug/Substance Use Hx: No Substance Use Type: None Review of Systems - Review of Systems Constitutional: No: Chills, Diaphoresis, Fever, Loss of Appetite HEENTM: No: Blurred Vision, Tearing Respiratory: Yes: Shortness of Breath, SOB with Exertion, SOB at Rest. No: Cough, Orthopnea Cardiac (ROS): No: Chest Pain, Irregular Heart Rate, Chest Tightness ABD/GI: No: Diarrhea, Nausea, Vomiting : No: Dysuria, Discharge, Frequency Musculoskeletal: No: Muscle Pain, Muscle Weakness Integumentary: No: Bruising, Change in Color, Flushing, Lesions, Lumps, Pallor Neurological: No: Headache, Numbness, Paresthesia, Seizure Hematologic/Lymphatic: No: Anemia, Blood Clots *Physical Exam - Vital Signs Last Vital Signs Temp Pulse Resp BP Pulse Ox 98.5 F 72 16 109/70 98 04/21/18 12:35 04/21/18 12:35 04/21/18 12:35 04/21/18 12:35 04/21/18 12:35 - Physical Exam General Appearance: Yes: Nourished, Appropriately Dressed. No: Apparent Distress HEENT: positive: EOMI, SONIDO, Normal ENT Inspection, Normal Voice Neck: positive: Trachea midline, Normal Thyroid, Supple. negative: Tender, Rigid Respiratory/Chest: negative: Chest Tender, Lungs Clear (faint bilateral crackels with delayed expiratory phase), Normal Breath Sounds, Respiratory Distress (On 2L O2 at baseline), Accessory Muscle Use Cardiovascular: positive: Regular Rhythm, Regular Rate Gastrointestinal/Abdominal: positive: Normal Bowel Sounds, Flat, Soft. negative : Tender Musculoskeletal: positive: Normal Inspection. negative: Decreased Range of Motion Extremity: positive: Normal Capillary Refill, Normal Inspection, Normal Range of Motion. negative: Tender Integumentary: positive: Normal Color, Dry, Warm Neurologic: positive: Fully Oriented, Alert, Normal Mood/Affect, Normal Response Medical Decision Making - Medical Decision Making This unfortunate patient seems to have fallen victim to logistical hiccups and is medically stable to be admitted for rehabilitation. I called the correctional case records supervisor Stella Montoya 3-4 times, left a message, and overheaded for her. I then called called [facility] and spoke to the physician who informed me that Mr. Castro was cleared for admission. Patient was sent in stable condition via security to [facility] for admission to EtOH rehab. 04/21/18 15:39 *DC/Admit/Observation/Transfer Diagnosis at time of Disposition: H/O ETOH abuse - Discharge Dispostion Disposition: HOME Condition at time of disposition: Improved Decision to Admit order: No - Referrals Referrals: [facility] [place] [Provider Group] - Patient Instructions Printed Discharge Instructions: DI for Alcohol Abuse Additional Instructions: Please go to [facility] and complete your rehab. Please stop using alcohol as you have a lot of life ahead of you. Please return to the ED if you have any new issues or problems staying sober. - Post Discharge Activity
[2018-04-21 12:51] VITALS: BMI 27.3
--- NOTE | 2018-04-21 13:04 | PDOC ---
Attending Attestation - Resident Resident Name: [email or web address] - ED Attending Attestation I have performed the following: I have examined & evaluated the patient, The case was reviewed & discussed with the resident, I agree w/resident's findings & plan, Exceptions are as noted - HPI HPI: 04/21/18 13:02 62y M hx of etoh abuse, copd on 2L of NC, recent admission for pneumonia, was d/ c from [facility] today to [facility], however there is nor ehab program at [facility] and pt was transferred back to [facility]. Pt has no complaints. General: well appearing, nAD ENT: NC in place PULM: CTA CARD: rrr, no m/r/g ABD: soft nontender will dw case gerard ry to get pt into rehab at [facility] - Physicial Exam PE: 04/21/18 14:08 see abve - Medical Decision Making 04/21/18 14:08 see above
[2018-04-21 16:50] VITALS: BP 97/60; PULSE 71; TEMP 97.3
== END 2018-04-21 16:46 | disposition home or self-care (01) ==
LOC: JER 12:35
DX: F10.10 Alcohol abuse, uncomplicated (principal); J44.9 Chronic obstructive pulmonary disease, unspecified; E78.00 Pure hypercholesterolemia, unspecified; Z79.01 Long term (current) use of anticoagulants
CPT/HCPCS: 99281-25